=== PATIENT | female | born 1960 | race Caucasian/White ===

== ENCOUNTER 2018-04-07 17:16 | Inpatient (IN) | payer MEDICARE, OTHER ==
[~2018-04-07] VITALS: Ht 157.5 cm; Wt 86.2 kg
[~2018-04-07 17:16] MED LIST: BUPR300T52 PO; CEPH-570 PO; GABA-536
--- NOTE | 2018-04-07 17:16 | NUR ---
PT BIBRA 8[address] FROM [address] STREETS C/O LOWER ABDOMINAL PAIN. PT IS AAOX3, NOT IN RESPIRATORY DISTRESS, V/S STABLE, KEPT RESTED AND COMFORTABLE.
--- NOTE | 2018-04-07 17:41 | NUR ---
SEEN AND EXAMINED BY LIZETTE BEVERLY
[2018-04-07 18:05] LABS: BASOPHILS # (AUTO) 0.1 /CMM (0.0-0.2); BASOPHILS % (AUTO) 0.8 % (0.0-2.0); EOSINOPHILS % (AUTO) 2.1 % (0.0-6.0); HEMATOCRIT 35 % (33-45); HEMOGLOBIN 11.7 g/dL (11.5-14.8); LYMPHOCYTES # (AUTO) 2.1 /CMM (0.8-4.8); LYMPHOCYTES % (AUTO) 28.4 % (20.0-44.0); MEAN CORPUSCULAR HGB CONC 33 g/dl (31.0-36.0); MEAN CORPUSCULAR VOLUME 89 fL (82-100); MONOCYTES # (AUTO) 0.6 /CMM (0.1-1.30); MONOCYTES % (AUTO) 8.3 % (2.0-12.0); NEUTROPHILS # (AUTO) 4.5 /CMM (1.8-8.9); NEUTROPHILS % (AUTO) 60.4 % (43.0-81.0); PLATELET COUNT (AUTO) 254 /CMM (150-450); RED BLOOD CELL COUNT(AUTO) 3.92 MIL/uL (4.0-5.2); WHITE BLOOD COUNT (AUTO) 7.4 K/uL (4.3-11.0)
[2018-04-07 18:11] LABS: CALCIUM, SERUM 8.2 mg/dL (8.5-10.1); CARBON DIOXIDE 31 mmol/L (21-32); CHLORIDE 104 mmol/L (98-107); GLUCOSE 101 mg/dL (74-106); POTASSIUM 3.8 mmol/L (3.5-5.1); SODIUM SERUM 138 mmol/L (136-145); UREA NITROGEN, BLOOD 26 mg/dL (7-18)
[2018-04-07 18:17] LABS: ALANINE AMINOTRANSFERASE 22 U/L (12-78); ALBUMIN 2.6 g/dL (3.4-5.0); ALCOHOL, BLOOD < 3 mg/dL (0-0); ALKALINE PHOSPHATASE 83 U/L (46-116); ASPARTATE AMINOTRANSFERASE 18 U/L (15-37); BILIRUBIN,DIRECT 0.1 mg/dL (0.0-0.2); BILIRUBIN,TOTAL 0.3 mg/dL (0.2-1.0); TOTAL PROTEIN, SERUM 6.3 g/dL (6.4-8.2)
[2018-04-07 18:18] LABS: ACETAMINOPHEN < 2 ug/ml (10-30); SALICYLATE < 2.8 mg/dL (2.8-20.0)
[2018-04-07 18:35] LABS: APPEARANCE,URINE Clear (CLEAR); BILIRUBIN,URINE Negative (NEGATIVE); BLOOD, URINE Moderate Ery/uL (NEGATIVE); COLOR,URINE Dark (YELLOW); KETONES,URINE Trace (NEGATIVE); LEUKOCYTE ESTERASE ,URINE Trace (NEGATIVE); NITRITE, URINE Positive (NEGATIVE); PROTEIN,URINE Trace mg/dl (NEGATIVE); UGLUCOSE Negative (NEGATIVE)
--- NOTE | 2018-04-07 18:35 | NUR ---
URINE SPECIMEN COLLECTED AND SENT TO LAB.
[2018-04-07 18:44] LABS: BACTERIA,URINE Many /HPF (None Seen); SQUAMOUS EPITHELIAL CELL,UR Few /HPF (None Seen)
--- NOTE | 2018-04-07 19:22 | NUR ---
REPORT GIVEN TO IRIS RAY FOR LUNA.
[2018-04-07] MEDS ORDERED: CEFTRIAXONE 1GM BAG (ER ONLY) 1 GM/50 ML PIGGYBACK IV ONE (20:00)
[2018-04-07] MEDS ORDERED: IV NS 0.9% 1,000 ML BAG IV ONE (20:00)
[2018-04-07] MEDS ORDERED: CEFTRIAXONE 1GM BAG (ER ONLY) 50 ML IV ONE (20:23)
--- NOTE | 2018-04-07 20:32 | NUR ---
PT IS AAOX3, NOT IN RESPIRATORY DISTRESS, V/S STABLE, KEPT RESTED AND COMFORTABLE.
--- NOTE | 2018-04-07 20:32 | NUR ---
IV STARTED IN LEFT HAND 20G IV, PT GIVEN 1L NS AND ROCEPHIN VIA LEFT HAND 20G IV
--- NOTE | 2018-04-07 21:51 | NUR ---
behzad called report given to German, pt will go to room 216A
[2018-04-07] MEDS ORDERED: MAGNESIUM HYDROXIDE 30 ML UDC PO PRN (23:00)
[2018-04-07] MEDS ORDERED: MAG HYDROX/AL HYDROX/SIMETH 30 ML UDC PO PRN (23:00)
--- NOTE | 2018-04-07 23:00 | NUR ---
GPS/HUMAN RESOURCES BENEFITS ASSISTANT ADMISSION NOTES: RECEIVED 57YR OLD FEMALE ON A 5150 HOLD FOR DTS. PT. IS A/O X3. UNCOOPERATIVE. PT. ORIENTED TO UNIT POLICY, PROCEDURES, AND PROTOCOLS. PT. BELONGINGS AND CONTRABAND LOGGED AND TAKEN, AND PLACED IN LOCKED CABINET. CALL ROSALES WITHIN REACH, BED IN LOCKED POSITION. SAFETY ENVIRONMENT OBSERVED AT ALL TIMES. MEDICAL AND PSYCH DR. NOTIFIED OF PT. ADMISSION. PT. FAMILY ALSO NOTIFIED OF PT. ADMISSION TO UNIT. WILL CONTINUE TO MONITOR Q 15 MIN FOR SAFETY AND BEHAVIOR.
[2018-04-08] MEDS ORDERED: CEPHALEXIN MONOHYDRATE 500 MG CAPSULE PO SCH (03:30)
[2018-04-08 07:50] LABS: BASOPHILS % (AUTO) 0.7 % (0.0-2.0); EOSINOPHILS % (AUTO) 2.1 % (0.0-6.0); HEMATOCRIT 36 % (33-45); HEMOGLOBIN 11.9 g/dL (11.5-14.8); LYMPHOCYTES # (AUTO) 1.6 /CMM (0.8-4.8); LYMPHOCYTES % (AUTO) 31.3 % (20.0-44.0); MEAN CORPUSCULAR HGB CONC 33 g/dl (31.0-36.0); MEAN CORPUSCULAR VOLUME 89 fL (82-100); MONOCYTES # (AUTO) 0.5 /CMM (0.1-1.30); MONOCYTES % (AUTO) 9.6 % (2.0-12.0); NEUTROPHILS # (AUTO) 2.9 /CMM (1.8-8.9); NEUTROPHILS % (AUTO) 56.3 % (43.0-81.0); PLATELET COUNT (AUTO) 258 /CMM (150-450); RED BLOOD CELL COUNT(AUTO) 4.03 MIL/uL (4.0-5.2); WHITE BLOOD COUNT (AUTO) 5.2 K/uL (4.3-11.0)
[2018-04-08 08:00] VITALS: BP 142/77
[2018-04-08 08:02] LABS: ALBUMIN 2.7 g/dL (3.4-5.0); BILIRUBIN,TOTAL 0.4 mg/dL (0.2-1.0); CALCIUM, SERUM 8.2 mg/dL (8.5-10.1); CREATININE 0.5 mg/dL (0.6-1.3); POTASSIUM 3.9 mmol/L (3.5-5.1)
[2018-04-08 08:03] LABS: CHOLESTEROL 126 mg/dL (<200); HDL CHOLESTEROL 51 mg/dL (40-60); LDL 73 mg/dL (0-99); TRIGLYCERIDES 66 mg/dL (30-150)
--- NOTE | 2018-04-08 10:44 | NUR ---
SW attempted to contact pts relative Paz Moss [phone]. SW was unable to leave voicemail as mailbox is not set up.
--- NOTE | 2018-04-08 10:44 | NUR ---
INITIAL DISCHARGE PLAN: Patient wishes to be discharged to a SNF. SW will help form a safe and proper discharge in collaboration with MD.
[2018-04-08] MEDS: CEPHALEXIN MONOHYDRATE 500 MG CAPSULE PO SCH ×2 (12:18→21:25)
[2018-04-08] MEDS: LORAZEPAM 0.5 MG TABLET PO PRN ×2 (12:18→21:25)
[2018-04-08 16:00] VITALS: BP 109/50
[2018-04-08 20:00] VITALS: BP 131/79
[2018-04-08] MEDS: GABAPENTIN 400 MG CAPSULE PO SCH (21:25)
[2018-04-09 08:00] VITALS: BP 134/89
[2018-04-09] MEDS: GABAPENTIN 400 MG CAPSULE PO SCH ×4 (08:56→20:50)
[2018-04-09] MEDS: CEPHALEXIN MONOHYDRATE 500 MG CAPSULE PO SCH ×2 (08:56→20:50)
[2018-04-09] MEDS: BUPROPION XL 150 MG TAB.ER.24 PO SCH (08:59)
[2018-04-09] MEDS: ARIPIPRAZOLE 5 MG TABLET PO SCH (08:59)
[2018-04-09 16:00] VITALS: BP 147/69
[2018-04-10 08:00] VITALS: BP 125/76
[2018-04-10] MEDS: ARIPIPRAZOLE 5 MG TABLET PO SCH (08:28)
[2018-04-10] MEDS: BUPROPION XL 150 MG TAB.ER.24 PO SCH (08:28)
[2018-04-10] MEDS: GABAPENTIN 400 MG CAPSULE PO SCH ×4 (08:28→21:56)
[2018-04-10] MEDS: CEPHALEXIN MONOHYDRATE 500 MG CAPSULE PO SCH ×2 (08:28→23:00)
[2018-04-10 16:00] VITALS: BP 124/69
[2018-04-10 19:00] VITALS: BP 143/94
[2018-04-10 20:18] VITALS: BP 143/94
[2018-04-10] MEDS ORDERED: CEPHALEXIN MONOHYDRATE 500 MG CAPSULE PO ONE (22:12)
[2018-04-11 08:00] VITALS: BP 126/76
[2018-04-11] MEDS: BUPROPION XL 150 MG TAB.ER.24 PO SCH (09:56)
[2018-04-11] MEDS: CEPHALEXIN MONOHYDRATE 500 MG CAPSULE PO SCH ×2 (09:56→22:09)
[2018-04-11] MEDS: GABAPENTIN 400 MG CAPSULE PO SCH ×4 (09:56→22:10)
[2018-04-11] MEDS: ARIPIPRAZOLE 5 MG TABLET PO SCH (09:56)
[2018-04-11] MEDS: LORAZEPAM 0.5 MG TABLET PO PRN ×2 (11:16→22:09)
--- NOTE | 2018-04-11 11:16 | NUR ---
RN NOTE: PATIENT IS ANXIOUS. PRN ATIVAN GIVEN.
[2018-04-11 16:00] VITALS: BP 110/68
[2018-04-11 20:00] VITALS: BP 117/66
[2018-04-12 08:00] VITALS: BP 130/98
--- NOTE | 2018-04-12 08:00 | NUR ---
RN NOTES RECEIVED PT ON BED, STABLE, CLAM , CONTINUE TO MONITOR.
[2018-04-12] MEDS: GABAPENTIN 400 MG CAPSULE PO SCH ×4 (08:52→20:42)
[2018-04-12] MEDS: ARIPIPRAZOLE 5 MG TABLET PO SCH (08:52)
[2018-04-12] MEDS: CEPHALEXIN MONOHYDRATE 500 MG CAPSULE PO SCH ×2 (08:52→20:42)
[2018-04-12] MEDS: BUPROPION XL 150 MG TAB.ER.24 PO SCH (08:52)
[2018-04-12 16:00] VITALS: BP 118/71
--- NOTE | 2018-04-12 18:23 | NUR ---
RN NOTES NO SIGNIFICANT CHANGES NOTED ON THIS SHIFT, PT HEMALATHA ANY DISTRESS , WILL ENDORSE TO TERRA COTTA SETTER NURSE FOR CONTINUITY OF CARE.
[2018-04-12 20:49] VITALS: BP 106/55
[2018-04-13 07:17] LABS: CREATININE 0.8 mg/dL (0.6-1.3); POTASSIUM 4.7 mmol/L (3.5-5.1)
[2018-04-13 08:00] VITALS: BP 146/90
[2018-04-13] MEDS: GABAPENTIN 400 MG CAPSULE PO SCH ×4 (08:56→21:00)
[2018-04-13] MEDS: BUPROPION XL 150 MG TAB.ER.24 PO SCH (08:56)
[2018-04-13] MEDS: ARIPIPRAZOLE 5 MG TABLET PO SCH (08:56)
[2018-04-13] MEDS: CEPHALEXIN MONOHYDRATE 500 MG CAPSULE PO SCH ×2 (08:56→21:00)
[2018-04-13] MEDS: LORAZEPAM 0.5 MG TABLET PO PRN (09:46)
[2018-04-13 16:00] VITALS: BP 127/88
[2018-04-13 19:56] VITALS: BP 102/74
[2018-04-13] MEDS: TEMAZEPAM 7.5 MG CAPSULE PO PRN (22:03)
[2018-04-14 08:00] VITALS: BP 116/67
[2018-04-14] MEDS: GABAPENTIN 400 MG CAPSULE PO SCH ×4 (08:47→21:08)
[2018-04-14] MEDS: BUPROPION XL 150 MG TAB.ER.24 PO SCH (08:48)
[2018-04-14] MEDS: CEPHALEXIN MONOHYDRATE 500 MG CAPSULE PO SCH ×2 (08:48→21:08)
--- NOTE | 2018-04-14 09:09 | NUR ---
OMKAR faxed referral to America programming coordinator at [facility] Address: [address] [place] [address] for review.
[2018-04-14] MEDS: LORAZEPAM 0.5 MG TABLET PO PRN ×2 (12:08→18:12)
[2018-04-14] MEDS: ACETAMINOPHEN 325 MG TABLET PO PRN ×2 (12:08→18:12)
--- NOTE | 2018-04-14 13:28 | NUR ---
SW received a phone call from David, helper coordinator at [facility] Address: [address] [place] [address] stating pts Medicare has been exhausted due to her current hospitalization and therefore pt is not covered for their detox inpatient program. David also stated that pt may be able to be admitted under their residential program, however, there are currently no bed available.
[2018-04-14 16:00] VITALS: BP 132/89
[2018-04-14 20:00] VITALS: BP 109/56
[2018-04-14] MEDS: ARIPIPRAZOLE 5 MG TABLET PO SCH (21:07)
[2018-04-15 08:00] VITALS: BP 123/78
--- NOTE | 2018-04-15 08:33 | NUR ---
OMKAR faxed SNF referral to Pattern Duplicator at [facility] Address: [address], [place] [address] and [facility] (SNF) [address] [address] for SNF placement. .
[2018-04-15] MEDS: BUPROPION XL 150 MG TAB.ER.24 PO SCH (08:50)
[2018-04-15] MEDS: CEPHALEXIN MONOHYDRATE 500 MG CAPSULE PO SCH (08:50)
[2018-04-15] MEDS: GABAPENTIN 400 MG CAPSULE PO SCH ×4 (08:50→21:28)
--- NOTE | 2018-04-15 09:51 | NUR ---
SW received a phone call from Projection Camera Operator at [facility] Address: [address], [place] [address] and [facility] ([facility]) [address] [address] stating pt has been accepted to both facilities.
[2018-04-15] MEDS: LORAZEPAM 0.5 MG TABLET PO PRN ×2 (12:22→23:06)
[2018-04-15 16:00] VITALS: BP 123/71
[2018-04-15] MEDS: ACETAMINOPHEN 325 MG TABLET PO PRN (16:53)
[2018-04-15 20:00] VITALS: BP 107/67
[2018-04-15] MEDS: ARIPIPRAZOLE 5 MG TABLET PO SCH (21:28)
[2018-04-16 08:00] VITALS: BP 129/93
[2018-04-16] MEDS: BUPROPION XL 150 MG TAB.ER.24 PO SCH (08:44)
[2018-04-16] MEDS: GABAPENTIN 400 MG CAPSULE PO SCH ×4 (08:44→20:49)
--- NOTE | 2018-04-16 15:11 | NUR ---
RN NOTE: PATIENT IS ANXIOUS. PRN ATIVAN 1 MG PO PRN GIVEN. WILL CONTINUE MONITORING. Addendum: 04/16/18 at 1512 by JUAN MIGUEL BUTLER RN WRONG PT NOTE
[2018-04-16] MEDS: LORAZEPAM 0.5 MG TABLET PO PRN (15:53)
[2018-04-16 16:00] VITALS: BP 117/69
[2018-04-16] MEDS: ACETAMINOPHEN 325 MG TABLET PO PRN (18:30)
[2018-04-16 20:00] VITALS: BP 130/72
[2018-04-16] MEDS: ARIPIPRAZOLE 5 MG TABLET PO SCH (21:02)
[2018-04-16] MEDS: TEMAZEPAM 7.5 MG CAPSULE PO PRN (21:02)
--- NOTE | 2018-04-17 00:30 | NUR ---
GPS RN NOTES PT SLEEPING. EASILY AROUSABLE. NOT IN ANY DISTRESS. NO SOB NOTED. NO S/SX OF ANY PAIN OR DISCOMFORT AT THIS TIME. WILL CONTINUE TO MONITOR FOR BEHAVIOR AND SAFETY.
[2018-04-17] MEDS: ACETAMINOPHEN 325 MG TABLET PO PRN ×2 (06:03→12:25)
--- NOTE | 2018-04-17 07:30 | NUR ---
PT RECEIVED RESTING COMFORTABLY IN BED. NO S/S OR C/O PAIN OR DISTRESS NOTED. GPS SAFETY PROTOCOL MET. WILL CONTINUE PLAN OF CARE.
[2018-04-17 08:00] VITALS: BP 148/88
[2018-04-17] MEDS: GABAPENTIN 400 MG CAPSULE PO SCH ×4 (09:15→21:52)
[2018-04-17] MEDS: BUPROPION XL 150 MG TAB.ER.24 PO SCH (09:15)
[2018-04-17] MEDS: LORAZEPAM 0.5 MG TABLET PO PRN ×2 (14:48→21:52)
[2018-04-17 16:00] VITALS: BP 160/85
[2018-04-17 20:00] VITALS: BP 121/83
[2018-04-17] MEDS: ARIPIPRAZOLE 5 MG TABLET PO SCH (21:52)
[2018-04-18] MEDS: ACETAMINOPHEN 325 MG TABLET PO PRN ×2 (05:21→15:25)
--- NOTE | 2018-04-18 05:32 | NUR ---
GPS RN NOTE: PATIENT WAS UPSET, LOUD, DEMANDING, YELLING, AGITATED AND C/O ROOMMATE SMELL. REDIRECTED THE PATIENT, LIMIT SETTING DONE. EXPLAINED TO THE PATIENT THAT THERE IS NO AVAILABLE BED AT THIS TIME. OFFERED THE OBSERVATION ROOM TEMPORARY AND PATIENT CALM DOWN AND APPRECIATED THE INTERVENTION. WILL CONTINUE TO FOLLOW UP IN AM
[2018-04-18 08:00] VITALS: BP 137/71
[2018-04-18] MEDS: GABAPENTIN 400 MG CAPSULE PO SCH ×4 (08:11→21:13)
[2018-04-18] MEDS: BUPROPION XL 150 MG TAB.ER.24 PO SCH (08:12)
[2018-04-18] MEDS: LORAZEPAM 0.5 MG TABLET PO PRN (13:49)
--- NOTE | 2018-04-18 15:38 | NUR ---
SW provided substance abuse intervention to pt.
[2018-04-18 16:00] VITALS: BP 134/69
[2018-04-18 20:15] VITALS: BP 131/78
[2018-04-18] MEDS: ARIPIPRAZOLE 5 MG TABLET PO SCH (21:13)
[2018-04-18] MEDS: TEMAZEPAM 7.5 MG CAPSULE PO PRN (23:08)
[2018-04-19 08:00] VITALS: BP 135/74
[2018-04-19] MEDS: BUPROPION XL 150 MG TAB.ER.24 PO SCH (09:09)
[2018-04-19] MEDS: GABAPENTIN 400 MG CAPSULE PO SCH ×2 (09:09→12:50)
--- NOTE | 2018-04-19 15:05 | NUR ---
DISCHARGE NOTE: Pt was discharged at 2:00pm via [facility] ambulance trip #[id number] to [facility] Address: [address] [place] [address] . No family to notify. Pts mood was anxious and agitated and stated she was going to AMA as soon as she arrived to the facility. Pt denied visual/auditory hallucinations and denied suicidal/homicidal ideations. Pt will address her substance use and continue psychiatric treatment with Psychiatrist: Dr. Joseluis Owusu [address], [place] [address] [phone] and be under the care of Carrier Loader: Dr. Cristofer Bravo [address], [place] [address] [phone]. For smoking cessation, patient was referred to the [place] [place] and [place] [employer] [id number]. Pt will also participate in a telephone meeting with [employer] [phone] on Thursday April 19, 2018 at 8:00am. The multidisciplinary exitcare form was done, printed, signed, and given to the patient.
--- NOTE | 2018-04-19 16:11 | NUR ---
RN NOTE: DISCHARGE ORDER: PATIENT LEFT THE UNIT WITH AMBULANCE AT 1410 WITH THE AMBULANCE SERVICE TO [facility]. PATIENT DENIES SI/HI DURING DISCHARGE. DENIES HALLUCINATIONS. PSYCHIATRIST ORDERED DC ORDER, DC HOLD, AND CONT MEDS. LOOM FIXER AWARE AND CONT MEDS. BELONGINGS WITH PATIENT. EXIT CARE GIVEN AND EXPLAINED TO PATIENT. SKIN ASSESSMENT CLEAR WITH NO PICTURES. REPORT GIVEN TO VELIA AT THE HOME.
--- NOTE | 2018-05-04 16:16 | NUR ---
15 DAY SUBSTANCE ABUSE FOLLOW-UP: Excluded due to D/C to SNF.
== END 2018-04-19 14:05 | DRG 885 ==
LOC: ER 17:17 → GPS 21:32
PROVIDERS: ADMIT Psychiatry & Neurology Psychiatry; ATTEND Psychiatry & Neurology Psychiatry
DX: F31.30 Bipolar disorder, current episode depressed, mild or moderate severity, unspecified (principal); N17.0 Acute kidney failure with tubular necrosis; N39.0 Urinary tract infection, site not specified; E44.0 Moderate protein-calorie malnutrition; K43.9 Ventral hernia without obstruction or gangrene; M19.90 Unspecified osteoarthritis, unspecified site; F17.210 Nicotine dependence, cigarettes, uncomplicated; G89.29 Other chronic pain; Z85.820 Personal history of malignant melanoma of skin; Z96.641 Presence of right artificial hip joint; Z96.653 Presence of artificial knee joint, bilateral; Z85.41 Personal history of malignant neoplasm of cervix uteri; Z98.84 Bariatric surgery status; G40.909 Epilepsy, unspecified, not intractable, without status epilepticus; Z91.19 Patient's noncompliance with other medical treatment and regimen; F29 Unspecified psychosis not due to a substance or known physiological condition; F15.10 Other stimulant abuse, uncomplicated; F12.10 Cannabis abuse, uncomplicated; B96.1 Klebsiella pneumoniae [K. pneumoniae] as the cause of diseases classified elsewhere; Z68.34 Body mass index [BMI] 34.0-34.9, adult; E88.09 Other disorders of plasma-protein metabolism, not elsewhere classified; Z59.0 Homelessness
CPT/HCPCS: 36415; 80048-TC; 80053-TC; 80061-TC; 80076-TC; 80305; 81000-TC; 85025-TC; 87081-TC; 87086-TC; 87186-TC; G0480; J0696; J7030

== ENCOUNTER 2018-11-28 10:01 | Inpatient (IN) | payer MEDICARE, OTHER ==
[~2018-11-28] VITALS: Ht 162.6 cm; Wt 86.2 kg
[~2018-11-28 10:01] MED LIST changes: -BUPR300T52 PO
--- NOTE | 2018-11-28 10:08 | NUR ---
[id number] AND JU,58 YEAR OLD FEMALE ALCOHOL INTOXICATION, PER JU PT STATES "I WANT TO KILL MYSELF", BS 132. ALERT AND ORIENTED X1 BREATHING EVEN. IN DISTRESS SECURITY WAS CALLED, VERBAL ORDER GIVEN FOR A 4 POINT RESTRAINTS ON PATIENT. PATIENT APPEARS HOMELESS. WAITING TO BE SEEN BY MD. WILL CONTINUE TO MONITOR.
[2018-11-28] MEDS ORDERED: HALOPERIDOL LACTATE INJ 5 MG/ML VIAL ONE (10:09)
[2018-11-28] MEDS ORDERED: LORAZEPAM INJ 2 MG/ML VIAL ONE (10:11)
--- NOTE | 2018-11-28 10:18 | NUR ---
agitated- does not follow command- ER MD at bedside with orders for IM- Ativan and haldol - given
[2018-11-28 10:28] LABS: BASOPHILS % (AUTO) 0.5 % (0.0-2.0); EOSINOPHILS % (AUTO) 2.9 % (0.0-6.0); HEMATOCRIT 37 % (33-45); HEMOGLOBIN 12.3 g/dL (11.5-14.8); LYMPHOCYTES # (AUTO) 1.9 /CMM (0.8-4.8); LYMPHOCYTES % (AUTO) 30.5 % (20.0-44.0); MEAN CORPUSCULAR HGB CONC 33 g/dl (31.0-36.0); MEAN CORPUSCULAR VOLUME 92 fL (82-100); MONOCYTES # (AUTO) 0.5 /CMM (0.1-1.30); MONOCYTES % (AUTO) 7.9 % (2.0-12.0); NEUTROPHILS # (AUTO) 3.6 /CMM (1.8-8.9); NEUTROPHILS % (AUTO) 58.2 % (43.0-81.0); PLATELET COUNT (AUTO) 339 /CMM (150-450); RED BLOOD CELL COUNT(AUTO) 4.06 MIL/uL (4.0-5.2); WHITE BLOOD COUNT (AUTO) 6.1 K/uL (4.3-11.0)
[2018-11-28 10:30] LABS: APPEARANCE,URINE Clear (CLEAR); BILIRUBIN,URINE Negative (NEGATIVE); BLOOD, URINE Small Ery/uL (NEGATIVE); COLOR,URINE Light yellow (YELLOW); KETONES,URINE Negative (NEGATIVE); LEUKOCYTE ESTERASE ,URINE Small (NEGATIVE); NITRITE, URINE Negative (NEGATIVE); PROTEIN,URINE Negative (NEGATIVE); UGLUCOSE Negative (NEGATIVE); UROBILINOGEN,URINE 0.2 EU/dL (0.2)
[2018-11-28] MEDS ORDERED: LORAZEPAM INJ 2 MG/ML VIAL IM ONE (10:30)
[2018-11-28] MEDS ORDERED: HALOPERIDOL LACTATE INJ 5 MG/ML VIAL IM ONE (10:30)
[2018-11-28 10:35] LABS: BACTERIA,URINE Few /HPF (None Seen); SQUAMOUS EPITHELIAL CELL,UR Few /HPF (None Seen); WBC,URINE 0-2 /HPF (0-3)
[2018-11-28 10:36] LABS: HYALINE CASTS, URINE Few /LPF (None Seen)
[2018-11-28 10:38] LABS: CALCIUM, SERUM 7.9 mg/dL (8.5-10.1); CREATININE 0.6 mg/dL (0.6-1.3); POTASSIUM 3.9 mmol/L (3.5-5.1)
[2018-11-28 10:44] LABS: ALBUMIN 3.2 g/dL (3.4-5.0); BILIRUBIN,DIRECT 0.1 mg/dL (0.0-0.2); BILIRUBIN,TOTAL 0.3 mg/dL (0.2-1.0); SALICYLATE 1.7 mg/dL (2.8-20.0); TOTAL PROTEIN, SERUM 6.8 g/dL (6.4-8.2)
--- NOTE | 2018-11-28 12:10 | NUR ---
PATIENT ASLEEP RESTRAINTS REMOVED +PULSES GOOD CIRCULATION
--- NOTE | 2018-11-28 14:10 | NUR ---
PATIENT ASLEEP RESTRAINTS REMOVED +PULSES GOOD CIRCULATION
--- NOTE | 2018-11-28 14:11 | NUR ---
2000ML OF URINE OUTPUT FROM F/C
--- NOTE | 2018-11-28 15:13 | NUR ---
CALLED FOR FOOD TRAY
--- NOTE | 2018-11-28 15:33 | NUR ---
CALLED DENISE TO COME SEE PT.
--- NOTE | 2018-11-28 15:57 | NUR ---
pt still asleep, not ready to be seen by sw
--- NOTE | 2018-11-28 20:39 | NUR ---
GPS 220 A
--- NOTE | 2018-11-28 20:52 | NUR ---
REPORT GIVEN TO TRISHA SIMMONS FOR LUNA PT WILL BE TRANSPORTED TO GPS
[2018-11-28 21:30] VITALS: BP 155/75
[2018-11-28] MEDS ORDERED: BLOOD SUGAR DIAGNOSTIC 1 EACH STRIP IN ONE (21:30)
[2018-11-28] MEDS ORDERED: MAG HYDROX/AL HYDROX/SIMETH 30 ML UDC PO PRN (21:30)
[2018-11-28] MEDS ORDERED: MAGNESIUM HYDROXIDE 30 ML UDC PO PRN (21:30)
--- NOTE | 2018-11-28 21:30 | NUR ---
RN INITIAL NOTE PT ARRIVED TO UNIT VIA WHEELCHAIR FROM ER. PT IS A/OX3. ON ROOM AIR, BREATHING EVEN AND UNLABORED. DENIES SOB AND PAIN AT THIS TIME. IN NO ACUTE RESPIRATORY DISTRESS. PT DISHEVELED AND UNKEMPT. PT IS HOMELESS. ESCORTED TO SHOWER ROOM AND THEN TO BED. ORIENTED PT TO UNIT AND ROOM. EXPRESSES THAT SHE IS DEPRESSED AND SUICIDAL. ORIGINAL PLAN OUTSIDE HOSPITAL WAS TO "RUN INTO ONCOMING TRAFFIC". ALTHOUGH NOW THAT SHE IS IN UNIT, SHE DENIES HAVING A PLAN. DENIES HI AND HALLUCINATIONS AT THIS TIME. SHE IS COOPERATIVE AND OBEYS COMMANDS, ALTHOUGH GETS EASILY AGITATED AND UPSET WHEN ASKING ABOUT HER FAMILY LIFE. BELONGINGS LIST COMPLETED AND STORED PER PROTOCOL. WILL MONITOR CLOSELY AND PROVIDE FREQUENT SAFETY CHECKS.
[2018-11-29 07:35] LABS: CREATININE 0.6 mg/dL (0.6-1.3)
[2018-11-29 07:43] LABS: CHOLESTEROL 157 mg/dL (<200); HDL CHOLESTEROL 83 mg/dL (40-60); LDL 67 mg/dL (0-99); TRIGLYCERIDES 54 mg/dL (30-150)
[2018-11-29 08:00] VITALS: BP 151/74
[2018-11-29] MEDS: LORAZEPAM 0.5 MG TABLET PO PRN ×2 (09:49→17:21)
[2018-11-29] MEDS: GABAPENTIN 300 MG CAPSULE PO SCH ×2 (15:03→17:21)
--- NOTE | 2018-11-29 15:23 | NUR ---
INITIAL DISCHARGE PLAN: Patient states that she wants to be discharged to [place] as that is where she is from. SW will refer pt to [facility]. SW will help form a safe and proper discharge in collaboration to .
--- NOTE | 2018-11-29 15:24 | NUR ---
Group Note: SW encouraged the pt to participate in group therapy on 11/29/18 at 2pm on the topic of discharge planning. Pt refused to attend by refusing to speak to the SW. SW proceeded to provide the pt with an individual intervention and stated that her SW will assist her with her placement needs. Pt appeared to be disheveled, malodorous and inappropriately dressed. Pt appeared to be in a labile mood and presented with a flat and guarded affect. Pt did not appear to be appropriate for group therapy.
[2018-11-29 16:00] VITALS: BP 143/74
[2018-11-29] MEDS: ARIPIPRAZOLE 5 MG TABLET PO SCH (17:20)
[2018-11-29 20:13] VITALS: BP 143/90
[2018-11-30 08:00] VITALS: BP 150/76
[2018-11-30] MEDS: CEPHALEXIN MONOHYDRATE 500 MG CAPSULE PO SCH ×2 (08:21→16:42)
[2018-11-30] MEDS: GABAPENTIN 300 MG CAPSULE PO SCH ×3 (08:21→16:42)
[2018-11-30] MEDS: ARIPIPRAZOLE 5 MG TABLET PO SCH ×3 (08:21→16:42)
[2018-11-30] MEDS: LORAZEPAM 0.5 MG TABLET PO PRN ×2 (09:06→15:59)
--- NOTE | 2018-11-30 10:54 | NUR ---
WOUND CARE CONSULT: PT AGITATED AND REFUSED SKIN ASSESSMENT. PT IS AMBULATORY AND CONTINENT. WILL SEE PRN. CURRENT SARAH SCORE IS 21.
[2018-11-30] MEDS ORDERED: Z GUARD REMEDY 2 OZ OINT TP PRN (11:00)
[2018-11-30 16:00] VITALS: BP 130/96
[2018-11-30 20:33] VITALS: BP 118/76
[2018-12-01 08:00] VITALS: BP 123/74
[2018-12-01] MEDS: GABAPENTIN 300 MG CAPSULE PO SCH ×3 (08:15→16:18)
[2018-12-01] MEDS: CEPHALEXIN MONOHYDRATE 500 MG CAPSULE PO SCH ×2 (08:15→16:18)
[2018-12-01] MEDS: ARIPIPRAZOLE 5 MG TABLET PO SCH ×3 (08:15→16:18)
[2018-12-01] MEDS: LORAZEPAM 0.5 MG TABLET PO PRN ×2 (09:28→16:56)
--- NOTE | 2018-12-01 15:35 | NUR ---
Group Note: SW encouraged pt to attend group therapy on 12/01/18 at 2:30pm discussing anger management for when they are in the hospital and for once they are discharged but pt unable to attend.
[2018-12-01 16:00] VITALS: BP 105/69
[2018-12-01 20:00] VITALS: BP 100/71
[2018-12-02] MEDS: TEMAZEPAM 7.5 MG CAPSULE PO PRN (01:32)
--- NOTE | 2018-12-02 01:34 | NUR ---
GPS RN NOTES AWAKE,MEDICATED WITH RESTORIL 7.5MG,1 CAPSULE PO GIVEN
[2018-12-02 03:50] VITALS: BP 100/71
--- NOTE | 2018-12-02 07:22 | NUR ---
OPENING PT IN BED CALM, IS A/OX3. ON ROOM AIR, BREATHING EVEN AND UNLABORED. DENIES SOB AND PAIN AT THIS TIME. IN NO ACUTE RESPIRATORY DISTRESS. PT IN GREEN GOWN PT IS HOMELESS. ORIENTED PT TO UNIT AND ROOM. ORIGINAL PLAN OUTSIDE HOSPITAL WAS TO "RUN INTO ONCOMING TRAFFIC". WILL MONITOR AND PROVIDE FREQUENT SAFETY CHECKS.
[2018-12-02 08:00] VITALS: BP 124/79
[2018-12-02] MEDS: CEPHALEXIN MONOHYDRATE 500 MG CAPSULE PO SCH ×2 (08:48→17:09)
[2018-12-02] MEDS: ARIPIPRAZOLE 5 MG TABLET PO SCH ×3 (08:48→21:22)
[2018-12-02] MEDS: LORAZEPAM 0.5 MG TABLET PO PRN ×2 (08:48→21:23)
[2018-12-02] MEDS: GABAPENTIN 300 MG CAPSULE PO SCH ×3 (08:48→17:09)
[2018-12-02] MEDS: ACETAMINOPHEN 325 MG TABLET PO PRN (09:50)
--- NOTE | 2018-12-02 12:44 | NUR ---
SW spoke to the pt who stated that she wanted to be discharged to the streets because she did not want to be placed in a [place] [facility] [place] anymore. She stated that she knows how these nursing homes operate and she would rather be on her own on the streets. The SW redirected her to the pts psychiatrist and stated that the psychiatrist can let her know when she will be released.
[2018-12-02 16:00] VITALS: BP 102/60
--- NOTE | 2018-12-02 17:53 | NUR ---
CLOSING PT COOPERATIVE ALL DAY MOSTLY IN ROOM BED IN LOW POSITION KEPT SAFE ALL SHIFT PT COMPLIANT WITH MEDICATION PLAN. WILL GIVEN REPORT TO PM SHIFT FOR CONTINUITY OF CARE
[2018-12-02 18:05] VITALS: BP 124/74
--- NOTE | 2018-12-02 20:02 | NUR ---
OPINING: PT IS IN BED AWAKE, NO C/O OR S/S PAIN AND DISCOMFORT, PT HAS NO NEED AT THIS TIME, CONTINUE TO MONITOR PT AND MAINTAIN SAFETY THROUGHOUT THE SHIFT.
[2018-12-02 21:18] VITALS: BP 117/65
[2018-12-03 08:00] VITALS: BP 101/62
[2018-12-03] MEDS: CEPHALEXIN MONOHYDRATE 500 MG CAPSULE PO SCH ×2 (08:57→16:17)
[2018-12-03] MEDS: LORAZEPAM 0.5 MG TABLET PO PRN ×3 (08:57→23:22)
[2018-12-03] MEDS: GABAPENTIN 300 MG CAPSULE PO SCH ×3 (08:57→16:17)
[2018-12-03] MEDS: ARIPIPRAZOLE 5 MG TABLET PO SCH ×3 (08:57→21:55)
[2018-12-03 16:00] VITALS: BP 118/70
[2018-12-03] MEDS: ACETAMINOPHEN 325 MG TABLET PO PRN (16:17)
[2018-12-03 20:51] VITALS: BP 115/68
--- NOTE | 2018-12-04 07:54 | NUR ---
GPS RN NOTE O PT IS IN BED AWAKE, NO C/O OR S/S PAIN AND DISCOMFORT ,RESPIRATION EVEN UNLABORED , CONTINUE TO MONITOR PT AND MAINTAIN SAFETY AND BEHAVIOR MONITOR , HAVING BREAKFAST , ABLE TO EAT SELF
[2018-12-04 08:00] VITALS: BP 116/68
[2018-12-04] MEDS: ARIPIPRAZOLE 5 MG TABLET PO SCH ×3 (08:40→21:30)
[2018-12-04] MEDS: LORAZEPAM 0.5 MG TABLET PO PRN ×2 (08:40→15:34)
[2018-12-04] MEDS: GABAPENTIN 300 MG CAPSULE PO SCH ×3 (08:40→16:15)
[2018-12-04] MEDS: CEPHALEXIN MONOHYDRATE 500 MG CAPSULE PO SCH ×2 (08:41→16:15)
--- NOTE | 2018-12-04 09:42 | NUR ---
GPS RN NOTE TOOK MORNING PILLS WELL, ALL NEEDS ATTENDED
[2018-12-04] MEDS: ACETAMINOPHEN 325 MG TABLET PO PRN (11:06)
--- NOTE | 2018-12-04 11:27 | NUR ---
GPS RN NOTE VAUGHN RN REGULATORY ADMINISTRATOR SEE PATIENT NO NEW ORDER GIVEN AT THIS TIME
--- NOTE | 2018-12-04 15:43 | NUR ---
GPS RN NOTE C\O BEING ANXIOUS, ATIVAN PO 1 MG GIVEN ORDERED , ALL NEEDS ATTENDED
[2018-12-04 16:00] VITALS: BP 143/61
--- NOTE | 2018-12-04 18:07 | NUR ---
GPS RN NOTE PATIENT IN ROOM,HAVING DINNER , ALL NEEDS ATTENDED , ABLE TO EAT SELF , WILL CONT TO MONITOR CLOSELY
[2018-12-04 20:34] VITALS: BP 105/79
[2018-12-04] MEDS: TEMAZEPAM 7.5 MG CAPSULE PO PRN (22:59)
[2018-12-05] MEDS: LORAZEPAM 0.5 MG TABLET PO PRN ×2 (03:31→12:10)
[2018-12-05 08:00] VITALS: BP 123/66
[2018-12-05] MEDS: CEPHALEXIN MONOHYDRATE 500 MG CAPSULE PO SCH (08:41)
[2018-12-05] MEDS: GABAPENTIN 300 MG CAPSULE PO SCH ×2 (08:41→12:14)
[2018-12-05] MEDS: ARIPIPRAZOLE 5 MG TABLET PO SCH (08:41)
--- NOTE | 2018-12-05 10:57 | NUR ---
PC Hearing Notification: Pt stated that there is no one to notify about the PC hearing that will take place today.
[2018-12-05] MEDS: ACETAMINOPHEN 325 MG TABLET PO PRN (12:10)
--- NOTE | 2018-12-05 14:58 | NUR ---
Group Note: SW encouraged pt to attend group therapy on 12/05/18 at 1:30pm discussing support systems when they are in the hospital and for once they are discharged but the pt was unable to attend because she was attending her hearing.
[2018-12-05 16:00] VITALS: BP 155/91
--- NOTE | 2018-12-05 16:00 | NUR ---
MS RN NOTES PATIENT RELEASED BY COURT AND DR. MART DISCHARGED PATIENT TO [facility].
--- NOTE | 2018-12-05 16:00 | NUR ---
OMKAR called [facility] and left a voicemail message stating that the pt was discharged.
--- NOTE | 2018-12-05 16:14 | NUR ---
Discharge Note: Pt was discharged to [facility] located at [address] [place] [address]; . Pt was discharged at 3:30pm and was provided with a TAP card. Upon discharge, the pt appeared to be in a euthymic mood and presented with a calm affect. Pt was released from her hold due to her Probable Cause Hearing. Pt stated that she did not want a alf placement and wanted to continue working with [facility] that places her in shelters and assists her with receiving her medications. Pt will be under the care of a psychiatrist, Dr. Louis Holliday ([facility]), located at [address] [place] [address]; ; fax was sent to: [phone]. Pt was also referred to [facility], located at [address] [facility] [address], [place] [address]; for medical services. Pt was provided with homeless resources such as homeless shelters, food mei, substance abuse referrals, psychiatric and medical health services.
--- NOTE | 2018-12-05 16:35 | NUR ---
MS IRIS NOTES PATIENT DISCHARGED TO [facility] LOCATED AT [address] [place] [address]. PATIENT ALERT, ORIENTED X4. DISCHARGE INSTRUCTIONS PROVIDED VERBALIZED UNDERSTANDING. ALL DUE MEDICATIONS ADMINISTERED. PRESCRIPTION PROVIDED TO PATIENT. DISCHARGE PROTOCOL FOLLOWED. PATIENT REFUSED DISCHARGE PICTURES. PATIENT WAS PROVIDED WITH TAP CARD. ALL BELONGING ACCOUNTED FOR. BELONGING LIST SIGNED. PATIENT ESCORTED OUT BY KIM. Addendum: 12/05/18 at 1720 by DEMAR GEORGE RN PATIENT REFUSES SI/HI/AVH
== END 2018-12-05 16:35 | disposition home or self-care (01) | DRG 885 ==
LOC: ER 10:02 → GPS 20:40
PROVIDERS: ADMIT Psychiatry & Neurology Psychosomatic Medicine; ATTEND Internal Medicine
DX: F25.0 Schizoaffective disorder, bipolar type (principal); F23 Brief psychotic disorder; R45.851 Suicidal ideations; N39.0 Urinary tract infection, site not specified; E44.0 Moderate protein-calorie malnutrition; F17.210 Nicotine dependence, cigarettes, uncomplicated; F41.9 Anxiety disorder, unspecified; B96.89 Other specified bacterial agents as the cause of diseases classified elsewhere; F19.10 Other psychoactive substance abuse, uncomplicated; Z68.34 Body mass index [BMI] 34.0-34.9, adult; F32.9 Major depressive disorder, single episode, unspecified; E66.01 Morbid (severe) obesity due to excess calories; G89.29 Other chronic pain; M54.5 Low back pain; Z96.641 Presence of right artificial hip joint; Z96.653 Presence of artificial knee joint, bilateral; Z59.0 Homelessness; F10.129 Alcohol abuse with intoxication, unspecified
CPT/HCPCS: 36415; 80048-TC; 80061-TC; 80076-TC; 80305; 81000-TC; 82565-TC; 82962-TC; 85025-TC; 87081-TC; G0480; J1630; J2060

== ENCOUNTER 2019-03-11 10:43 | Emergency (ER) | payer MEDICARE, OTHER ==
[~2019-03-11] VITALS: Ht 157.5 cm; Wt 86.2 kg
--- NOTE | 2019-03-11 11:00 | NUR ---
[id number] and [employer], alcohol intoxication, found empty bottle of vodka beside the patient. On room air, breathing evenly and unlabored. connected to the monitor and pulse ox. kept comfortable, sitter at bedside. will continue to monitor accordingly.
[2019-03-11 11:29] LABS: BASOPHILS # (AUTO) 0.1 /CMM (0.0-0.2); BASOPHILS % (AUTO) 1.1 % (0.0-2.0); EOSINOPHILS % (AUTO) 1.4 % (0.0-6.0); HEMATOCRIT 35 % (33-45); HEMOGLOBIN 11.2 g/dL (11.5-14.8); LYMPHOCYTES # (AUTO) 2.2 /CMM (0.8-4.8); LYMPHOCYTES % (AUTO) 29.4 % (20.0-44.0); MEAN CORPUSCULAR HGB CONC 32 g/dl (31.0-36.0); MEAN CORPUSCULAR VOLUME 89 fL (82-100); MONOCYTES # (AUTO) 0.9 /CMM (0.1-1.30); MONOCYTES % (AUTO) 12.1 % (2.0-12.0); NEUTROPHILS # (AUTO) 4.2 /CMM (1.8-8.9); PLATELET COUNT (AUTO) 319 /CMM (150-450); RED BLOOD CELL COUNT(AUTO) 3.89 MIL/uL (4.0-5.2); WHITE BLOOD COUNT (AUTO) 7.5 K/uL (4.3-11.0)
[2019-03-11 11:42] LABS: CALCIUM, SERUM 8.3 mg/dL (8.5-10.1); CREATININE 0.6 mg/dL (0.6-1.3); POTASSIUM 3.7 mmol/L (3.5-5.1)
[2019-03-11 11:47] LABS: BILIRUBIN,DIRECT 0.1 mg/dL (0.0-0.2); BILIRUBIN,TOTAL 0.2 mg/dL (0.2-1.0); TOTAL PROTEIN, SERUM 6.7 g/dL (6.4-8.2)
[2019-03-11 11:48] LABS: SALICYLATE 1.8 mg/dL (2.8-20.0)
--- NOTE | 2019-03-11 12:02 | NUR ---
patient denies SI/HI.
--- NOTE | 2019-03-11 12:02 | NUR ---
called kitchen for food tray
--- NOTE | 2019-03-11 15:45 | NUR ---
urine collected and sent to lab
--- NOTE | 2019-03-11 15:45 | NUR ---
patient verbalized SI " i want to run thru traffic", made aware
[2019-03-11 15:54] VITALS: BP 110/81
[2019-03-11 15:56] LABS: APPEARANCE,URINE CLEAR (CLEAR); BILIRUBIN,URINE NEGATIVE (NEGATIVE); BLOOD, URINE MODERATE Ery/uL (NEGATIVE); COLOR,URINE YELLOW (YELLOW); KETONES,URINE NEGATIVE (NEGATIVE); LEUKOCYTE ESTERASE ,URINE NEGATIVE (NEGATIVE); NITRITE, URINE NEGATIVE (NEGATIVE); PROTEIN,URINE NEGATIVE (NEGATIVE); UGLUCOSE NEGATIVE (NEGATIVE); UROBILINOGEN,URINE 0.2 EU/dL (0.2)
--- NOTE | 2019-03-11 17:14 | NUR ---
patient in bedm asleep, in no distress, sitter at bedside for constant monitoring. Will continue to monitor accordingly.
--- NOTE | 2019-03-11 17:16 | NUR ---
clinicals and facesheet faxed to [facility]. awaiting call back.
--- NOTE | 2019-03-11 17:21 | NUR ---
faxed clinicals and facesheet to [facility]
--- NOTE | 2019-03-11 23:04 | NUR ---
PER IRIS ALANIZ FROM INTAKE, CLINICALS BEING REVIEWED BY NURSING SUP AND WILL CALL BACK WITH UPDATE WHEN AVAILABLE
--- NOTE | 2019-03-11 23:50 | NUR ---
PT ACCEPTED TO [facility] BY DR DE LEÓN. # FOR REPORT [phone]
--- NOTE | 2019-03-11 23:56 | NUR ---
[facility] CALLED FOR TRANSPORT. ETA 0100. TRIP# [id number]
--- NOTE | 2019-03-12 01:14 | NUR ---
[facility] AT BEDSIDE FOR TRANSPORT TO [facility].
== END 2019-03-12 01:15 ==
LOC: ER 10:46
DX: F10.229 Alcohol dependence with intoxication, unspecified (principal); R45.851 Suicidal ideations; R56.9 Unspecified convulsions; G89.29 Other chronic pain; M54.9 Dorsalgia, unspecified; F17.200 Nicotine dependence, unspecified, uncomplicated; Y90.8 Blood alcohol level of 240 mg/100 ml or more; Z88.8 Allergy status to other drugs, medicaments and biological substances; Z85.41 Personal history of malignant neoplasm of cervix uteri; Z96.653 Presence of artificial knee joint, bilateral; Z96.641 Presence of right artificial hip joint
CPT/HCPCS: 36415; 80048; 80076; 80305; 80307; 80329; 81001; 85025; 99285; G0480; 81000-TC

== ENCOUNTER 2019-07-16 07:17 | Emergency (ER) | payer MEDICARE, OTHER ==
[~2019-07-16] VITALS: Ht 157.5 cm; Wt 81.2 kg
--- NOTE | 2019-07-16 07:26 | NUR ---
, from [place], c/o right leg pain x 3 days, Hx right hip replacement. denies any trauma or injury. kept comfortable, will continue to monitor accordingly.
[2019-07-16] MEDS ORDERED: HYDROCODONE/APAP 5/325MG 1 EACH TABLET ONE (07:29)
[2019-07-16] MEDS ORDERED: HYDROCODONE/APAP 5/325MG 1 EACH TABLET PO ONE (07:30)
--- NOTE | 2019-07-16 10:43 | NUR ---
Patient given written and verbal discharge instructions. Patient verbalizes understanding of instructions. Patient provided with walker. Refuses offer of prison placement. Patient given list of available shelters in surrounding area. All belongings returned to patient, name band removed. Patient in proper clothing upon discharge. Patient was given sandwich and water. Tap card provided.
[2019-07-16 10:46] VITALS: BP 139/78
== END 2019-07-16 10:47 | disposition home or self-care (01) ==
LOC: ER 07:29
DX: M25.551 Pain in right hip (principal); G89.29 Other chronic pain; M54.9 Dorsalgia, unspecified; G40.909 Epilepsy, unspecified, not intractable, without status epilepticus; Z85.41 Personal history of malignant neoplasm of cervix uteri; Z96.641 Presence of right artificial hip joint; Z96.653 Presence of artificial knee joint, bilateral; Z88.1 Allergy status to other antibiotic agents
CPT/HCPCS: 73502

== ENCOUNTER 2019-09-10 15:42 | Emergency (ER) | payer MEDICARE, OTHER ==
[~2019-09-10] VITALS: Ht 157.5 cm; Wt 88.0 kg
--- NOTE | 2019-09-10 16:42 | NUR ---
[id number] FROM STREETS FOR ETOH FROM OUTSIDE OF [facility]. BG 142 PROJECT MANAGEMENT ENGINEER, PATIENT NOTED SHOUTING, TO ER BED 14, HOOKED TO MONITOR, WARM BLANKET PROVIDED, BREATHING EVEN AND UNLABORED, PATIENT NOT ASNWERING QUESTIONS.
--- NOTE | 2019-09-10 17:11 | NUR ---
DR NEWMAN AT BEDSIDE
[2019-09-10] MEDS ORDERED: HALOPERIDOL LACTATE INJ 5 MG/ML VIAL ONE ×2 (17:27→20:21)
[2019-09-10] MEDS ORDERED: diphenhydrAMINE HCL 50 MG/ML VIAL ONE (17:27)
[2019-09-10] MEDS ORDERED: HALOPERIDOL LACTATE INJ 5 MG/ML VIAL IM ONE ×3 (17:30→21:00)
[2019-09-10] MEDS ORDERED: diphenhydrAMINE HCL 50 MG/ML VIAL IM ONE (17:30)
--- NOTE | 2019-09-10 18:24 | NUR ---
PATIENT IN BED, AWAKE, HOOKED TO MONITOR, VSS. NOTED WITH LESS SHOUTING. SITTER AT BEDSIDE FOR SAFETY, WILL CONTINUE TO MONITOR.
--- NOTE | 2019-09-10 19:25 | NUR ---
ASSUMED CARE FOR THIS PT
--- NOTE | 2019-09-11 04:16 | NUR ---
PT RESTING COMFORTABLY IN BED. VSS. NO ACUTE DISTRESS NOTED. SITTER AT BEDSIDE FOR SAFETY
--- NOTE | 2019-09-11 05:00 | NUR ---
Patient is awake and alert to self, day, and place.Pt requesting to be discharged home. Pt ok to be discharged per Dr El. Patient discharged to home in stable condition. Written and verbal after care instructions given. Patient verbalizes understanding of instruction. pt ambulatory with a steady gait. Homeless waiver signed.
[2019-09-11 05:49] VITALS: BP 127/78
== END 2019-09-11 05:50 | disposition home or self-care (01) ==
LOC: ER 15:46
DX: F10.129 Alcohol abuse with intoxication, unspecified (principal); R41.82 Altered mental status, unspecified; G43.909 Migraine, unspecified, not intractable, without status migrainosus; G89.29 Other chronic pain; M54.9 Dorsalgia, unspecified; Y90.9 Presence of alcohol in blood, level not specified; Z85.41 Personal history of malignant neoplasm of cervix uteri; Z96.653 Presence of artificial knee joint, bilateral; Z96.641 Presence of right artificial hip joint; Z88.1 Allergy status to other antibiotic agents
CPT/HCPCS: 96372 ×3; 99284; J1200; J1630 ×2

== ENCOUNTER 2020-05-03 14:28 | Inpatient (IN) | payer MEDICARE, OTHER ==
[~2020-05-03] VITALS: Ht 167.6 cm; Wt 81.6 kg
[2020-05-03] MEDS ORDERED: LORAZEPAM INJ 2 MG/ML VIAL ONE (14:40)
[2020-05-03] MEDS ORDERED: LORAZEPAM INJ 2 MG/ML VIAL IM ONE (15:00)
--- NOTE | 2020-05-03 15:25 | NUR ---
PT RESTING IN BED APPEARS CALM AFTER [employer] LEFT. PT WAS GIVEN ATIVAN 2MG UPON ARRIVAL. PT NOW IS VERBALLY RESPONSIVE AND COOPERATIVE TO STAFF. ON MONITOR,SEEN BY CHAYITO. WITH ORDERS WILL CARRY OUT.
--- NOTE | 2020-05-03 15:37 | NUR ---
Social Service Consult: OMKAR consult request by ER staff for a 59 year old female. OMKAR met with pt at ER bed 15 with IRIS Tiwari) at 1330pm to assist with patient. OMKAR is unable to interview pt due to behavior issues and non cooperative. Pt is medicated with Ativan per nurse. Per EMR report, medication (Ativan 2mg) administered at 14:40 pm. Pt is aggressive and used profanity words. Pt kept saying "fuck" to law enforcement and ED staff.Per EMR, report, pt has hx of poly substance abuse. Pt toxicology is positive for methamphetamine and cannabinoids. OMKAR spoke to IRIS Tiwari) to contact social service liaison once the patient is ready to do an assessment. Plan: SW will follow up with the patient is agreeable to participate in interview and assessment. Addendum: 05/03/20 at 1556 by JHONATAN ESPITIA Social Service Consult: OMKAR consult request by ER staff for a 59 year old female. OMKAR met with pt at ER bed 15 with IRIS Tiwari) at 1330pm to assist with patient. OMKAR is unable to interview pt due to behavior issues and non cooperative. Pt is medicated with Ativan per nurse. Per EMR report, medication (Ativan 2mg) administered at 14:40 pm. Pt is aggressive and used profanity words. Pt kept saying "fuck" to law enforcement and ED staff.Per EMR, report, pt has hx of poly substance abuse. Pt toxicology is positive for methamphetamine and cannabinoids. OMKAR spoke to IRIS Tiwari) to contact social service liaison once the patient is ready to do an assessment. SW place addiction resources list in pt's chart. Plan: SW will follow up with the patient is agreeable to participate in interview and assessment.
--- NOTE | 2020-05-03 15:37 | NUR ---
PT ON A 0390 HOLD BY PD FOR DTO.
[2020-05-03 16:03] LABS: BASOPHILS # (AUTO) 0.1 /CMM (0.0-0.2); BASOPHILS % (AUTO) 1.7 % (0.0-2.0); EOSINOPHILS % (AUTO) 1.9 % (0.0-6.0); HEMATOCRIT 40 % (33-45); HEMOGLOBIN 13.3 g/dL (11.5-14.8); LYMPHOCYTES # (AUTO) 1.3 /CMM (0.8-4.8); LYMPHOCYTES % (AUTO) 24.3 % (20.0-44.0); MEAN CORPUSCULAR HGB CONC 33 g/dl (31.0-36.0); MEAN CORPUSCULAR VOLUME 89 fL (82-100); MONOCYTES # (AUTO) 0.4 /CMM (0.1-1.30); MONOCYTES % (AUTO) 7.3 % (2.0-12.0); NEUTROPHILS # (AUTO) 3.5 /CMM (1.8-8.9); NEUTROPHILS % (AUTO) 64.8 % (43.0-81.0); PLATELET COUNT (AUTO) 352 /CMM (150-450); RED BLOOD CELL COUNT(AUTO) 4.53 MIL/uL (4.0-5.2); WHITE BLOOD COUNT (AUTO) 5.4 K/uL (4.3-11.0)
[2020-05-03 16:24] LABS: CALCIUM, SERUM 9.2 mg/dL (8.5-10.1); CARBON DIOXIDE 28 mmol/L (21-32); CHLORIDE 100 mmol/L (98-107); CREATININE 0.9 mg/dL (0.6-1.3); GLUCOSE 105 mg/dL (74-106); SODIUM SERUM 139 mmol/L (136-145); UREA NITROGEN, BLOOD 16 mg/dL (7-18)
[2020-05-03 16:30] LABS: ALANINE AMINOTRANSFERASE 23 U/L (12-78); ALBUMIN 3.6 g/dL (3.4-5.0); ALCOHOL, BLOOD 128 mg/dL (0-0); ALKALINE PHOSPHATASE 72 U/L (46-116); ASPARTATE AMINOTRANSFERASE 22 U/L (15-37); TOTAL PROTEIN, SERUM 7.5 g/dL (6.4-8.2)
[2020-05-03 16:36] LABS: ACETAMINOPHEN 0 ug/ml (10-30)
--- NOTE | 2020-05-03 16:45 | NUR ---
PT PROVIDED W. MEAL TRAY. COOPERATIVE TO STAFF. STABLE VITALS.
[2020-05-03 16:53] LABS: BILIRUBIN,URINE NEGATIVE (NEGATIVE); COLOR,URINE YELLOW (YELLOW); LEUKOCYTE ESTERASE ,URINE TRACE (NEGATIVE); NITRITE, URINE NEGATIVE (NEGATIVE); PROTEIN,URINE NEGATIVE (NEGATIVE); UGLUCOSE NEGATIVE (NEGATIVE); UROBILINOGEN,URINE 0.2 EU/dL (0.2)
[2020-05-03 17:00] LABS: BACTERIA,URINE Rare /HPF (None Seen); RBC,URINE 0-2 /HPF (0-2); SQUAMOUS EPITHELIAL CELL,UR Few /HPF (None Seen); WBC,URINE 0-2 /HPF (0-3)
[2020-05-03 17:54] LABS: BILIRUBIN,DIRECT 0.1 mg/dL (0.0-0.2); BILIRUBIN,TOTAL 0.3 mg/dL (0.2-1.0)
[2020-05-03] MEDS ORDERED: LURA40TA PO (17:58)
[2020-05-03] MEDS ORDERED: BUPR300T52 PO (17:58)
[2020-05-03] MEDS ORDERED: ZIPRASIDONE MESYLATE 20 MG/VIAL VIAL IM ONE ×2 (20:18→20:30)
--- NOTE | 2020-05-03 21:09 | NUR ---
REPORT GIVEN TO ANTONIETA RN FOR LUNA
[2020-05-03] MEDS ORDERED: MAGNESIUM HYDROXIDE 30 ML UDC PO PRN (21:30)
[2020-05-03] MEDS ORDERED: LORAZEPAM 0.5 MG TABLET PO PRN (21:30)
[2020-05-03] MEDS ORDERED: ZOLPIDEM TARTRATE 5 MG TABLET PO PRN (21:30)
[2020-05-03] MEDS ORDERED: BLOOD SUGAR DIAGNOSTIC 1 EACH STRIP IN ONE (21:30)
[2020-05-03] MEDS ORDERED: MAG HYDROX/AL HYDROX/SIMETH 30 ML UDC PO PRN (21:30)
[2020-05-03] MEDS: ACETAMINOPHEN 325 MG TABLET PO PRN (22:39)
[2020-05-04 00:31] VITALS: BP 139/86
--- NOTE | 2020-05-04 00:55 | NUR ---
GPS PIECE MEAT TRIMMER NOTES: PATIENT ARRIVED THIS UNIT FROM ER, ESCORTED BY 2 ER STAFF ON STRETCHER. PATIENT IS ORIGINALLY FROM HOME. PATIENT IS ON A 5150 HOLD FOR DTO. PATIENT HOLD WAS PLACED ON 05/03/20 AT 1510. PER HOLD, PATIENT FOLLOWED HER NEIGHBOR TO HIS APARTMENT AND WAS BANGING ON HIS DOOR, ATTEMPTED HITTING THE NEIGHBOR WITH HER CANE, WAS SPITTING, ERRATIC AND DELUSIONAL, AND ADMITTED TO OFFICERS THAT SHE IS DEPRESSED. UPON FACE TO FACE EVALUATION, PATIENT PRESENTS A/O X2, APPEARS DEPRESSED, FLAT AFFECT, DISHEVELED, SLURRED SPEECH, ABLE TO FOLLOW DIRECTION, LABILE, AND PARANOID. SKIN ASSESSMENT DONE, PICTURES TAKEN AND PLACED IN PT. CHART. PATIENT REFUSED TO SIGN ALL PAPER WORK, ACCU CHEK DONE. PATIENT C/O BILATERAL KNEE PAIN, TYLENOL 325MG/2TABS/650MG GIVEN PO PRN ORDERED. PATIENT RIGHTS BOOKLET GIVEN. PATIENT IS UNDER THE PSYCHIATRIC CARE OF [facility] AND MEDICAL CARE OF [facility]. BOTH DOCTORS INFORMED OF PATIENT ADMISSION AND ORDER CARRIED OUT. PATIENT BELONGINGS WERE INVENTORIED AND CHECKED FOR CONTRABAND. IMMUNIZATIONS QUESTIONER AND NECESSARY PAPER WORK COMPLETED. PATIENT REFUSED PNA VACCINE, STATES SHE'S HAD FLU SHOT THIS SEASON. PATIENT ORIENTED TO ROOM, FLOOR AND STAFF. PATIENT EDUCATED ON THE USE OF CALL ROSALES. PATIENT BED SIDE RAILS UP X2 FOR SAFETY. PATIENT BED IS LOCKED AND IN LOWEST POSITION. Q15 MINUTES ROUNDS INITIATED. PATIENT CURRENTLY SLEEPING. WILL CONTINUE TO MONITOR PATIENT FOR SAFETY, MOOD, AND BEHAVIOR.
--- NOTE | 2020-05-04 06:06 | NUR ---
GPS RN CLOSING NOTES: PATIENT LAYING ON BED SLEEPING COMFORTABLY. SLEPT 7 HR THIS SHIFT. NO S/S OF DISTRESS. RESPIRATION EVEN AND UNLABORED WITH EQUAL RISE AND FALL OF THE CHEST ON ROOM AIR. SAFETY PRECAUTION MAINTAINED, BED IN LOWEST POSITION AND LOCKED. Q15 MINUTES SAFETY ROUND CONTINUED. ALL PATIENT CARE NEEDS MET ANTICIPATED. WILL CONTINUE TO MONITOR PATIENT FOR MOOD, BEHAVIOR AND SAFETY AND ENDORSE TO AM SHIFT.
[2020-05-04 06:56] LABS: BILIRUBIN,TOTAL 0.5 mg/dL (0.2-1.0); CALCIUM, SERUM 8.6 mg/dL (8.5-10.1); CREATININE 0.7 mg/dL (0.6-1.3); POTASSIUM 4.1 mmol/L (3.5-5.1); TOTAL PROTEIN, SERUM 6.5 g/dL (6.4-8.2)
[2020-05-04 07:03] LABS: CHOLESTEROL 147 mg/dL (<200); HDL CHOLESTEROL 47 mg/dL (40-60); LDL 83 mg/dL (0-99); TRIGLYCERIDES 70 mg/dL (30-150)
[2020-05-04 08:00] VITALS: BP 117/83
--- NOTE | 2020-05-04 08:29 | NUR ---
rn notes administered Ativan 1 mg po prn for anxiety per patient request, bp- 117/83, p-90. patent walking around the hallway, irritable easily. will monitoring.
[2020-05-04] MEDS: THIAMINE HCL 100 MG TABLET PO SCH (14:00)
[2020-05-04] MEDS: LORAZEPAM 0.5 MG TABLET PO PRN ×2 (14:48→20:30)
[2020-05-04 16:00] VITALS: BP 158/99
[2020-05-04] MEDS: ARIPIPRAZOLE 5 MG TABLET PO SCH (16:53)
[2020-05-04 20:52] VITALS: BP 119/77
[2020-05-05] MEDS: ACETAMINOPHEN 325 MG TABLET PO PRN ×2 (05:50→17:22)
[2020-05-05 08:00] VITALS: BP 116/70
[2020-05-05] MEDS: THIAMINE HCL 100 MG TABLET PO SCH (08:28)
[2020-05-05] MEDS: ARIPIPRAZOLE 5 MG TABLET PO SCH ×2 (08:28→17:19)
[2020-05-05] MEDS: MULTIPLE VIT (LYCOPENE/FA/MV,CA,IRON,MIN/LUT)1 TAB PO SCH (08:28)
[2020-05-05] MEDS: LORAZEPAM 0.5 MG TABLET PO PRN ×3 (08:31→21:17)
--- NOTE | 2020-05-05 08:33 | NUR ---
RN NOTES PT NOTED ANXIOUS AND REFUSED PHYSICAL EVALUATION TODAY. SHE REQUESTED FOR ATIVAN. ATIVAN 1MG PO GIVEN AT 0830. WILL CONTINUE TO MONITOR PT.
--- NOTE | 2020-05-05 14:32 | NUR ---
RN NOTES PATIENT NOTED ANXIOUS AND REQUESTED FOR HER ATIVAN. ATIVAN 1MG PO GIVEN AT 1429. WILL CONTINUE TO MONITOR PT.
[2020-05-05 16:00] VITALS: BP 104/57
--- NOTE | 2020-05-05 17:23 | NUR ---
RN NOTES PT C/O OF ACHING LOWER BACK PAIN AND REQUESTED FOR PAIN MEDICATION. PRN TYLENOL 650MG PO GIVEN AT 1722. WILL CONTINUE TO MONITOR.
[2020-05-05 19:54] VITALS: BP 118/57
[2020-05-06 08:00] VITALS: BP 131/70
[2020-05-06] MEDS: ARIPIPRAZOLE 5 MG TABLET PO SCH (08:19)
[2020-05-06] MEDS: LORAZEPAM 0.5 MG TABLET PO PRN (08:19)
[2020-05-06] MEDS: THIAMINE HCL 100 MG TABLET PO SCH (08:19)
[2020-05-06] MEDS: MULTIPLE VIT (LYCOPENE/FA/MV,CA,IRON,MIN/LUT)1 TAB PO SCH (08:19)
--- NOTE | 2020-05-06 11:05 | NUR ---
Substance Abuse Intervention: SW attempted to conduct a substance abuse intervention with the pt due to alcohol and cannabis abuse but the pt was resistant to participating in the intervention.
--- NOTE | 2020-05-06 11:22 | NUR ---
Initial Discharge Plan: Pt currently resides in an apartment located [address] [place] [address]; ([phone]). Per pt, she would like to return to her apartment. SW will work with the pt and pts MD regarding appropriate discharge planning. SW will form a safe and proper discharge.
--- NOTE | 2020-05-06 11:23 | NUR ---
Discharge Note: Pt will be discharged to her apartment located at [address] [place] [address], [address] [address]; ([phone]). Pt is being discharged against medical advice (AMA). Pt will be discharged around 11:30AM. Pt will not be provided with a taxi voucher and will take the bus back to her home. SW confirmed that the pt has keys to her apartment in her belongings. Upon discharge, pt appears to be in a dysphoric mood and presents with an agitated affect. Pt denies both suicidal and homicidal ideation as well as auditory and visual hallucinations. Pt appears to be alert and oriented x4 (time, place, self and situation). Pt appears to be ambulatory with an unsteady gait. Pt appears to be well groomed and appropriately dressed. Pt receives psychiatric services at [facility] located at [address] [place] [address]; ; fax of records was sent to: . Pt states that she does not have an erisa attorney and SW was unable to assist with a referral as the pt is leaving against medical advice. The multidisciplinary exit care form was done, printed, signed, and given to the patient.
--- NOTE | 2020-05-06 11:30 | NUR ---
Patient requesting to leave. PATIENT IN STABLE CONDITION WITH NO S/S OF PAIN OR DISTRESS. PATIENT EDUCATED ON CARE PLAN AND WHY IT IS IMPORTANT TO STAY TO CONTINUE CARE. PATIENT STATED THAT SHE UNDERSTANDS CARE PLAN BUT WOULD LIKE TO LEABE AT THIS TIME. ALL PATIEN'S BELONGINGS RETURNED TO PATIENT. PATIENT DISCHARGED AGAINST MEDICAL ADVICE IN STABLE CONDITION. END NOTE. BN
== END 2020-05-06 10:45 | disposition left against medical advice (07) | DRG 885 ==
LOC: ER 14:33 → GPS 20:55
PROVIDERS: ADMIT Psychiatry & Neurology Psychiatry; ATTEND Hospitalist
DX: F31.64 Bipolar disorder, current episode mixed, severe, with psychotic features (principal); F10.259 Alcohol dependence with alcohol-induced psychotic disorder, unspecified; F41.9 Anxiety disorder, unspecified; Z85.41 Personal history of malignant neoplasm of cervix uteri; G40.909 Epilepsy, unspecified, not intractable, without status epilepticus; M19.90 Unspecified osteoarthritis, unspecified site; G89.29 Other chronic pain; F17.200 Nicotine dependence, unspecified, uncomplicated; Z96.653 Presence of artificial knee joint, bilateral; Z96.641 Presence of right artificial hip joint; Z88.1 Allergy status to other antibiotic agents; Z79.899 Other long term (current) drug therapy; F19.10 Other psychoactive substance abuse, uncomplicated; F29 Unspecified psychosis not due to a substance or known physiological condition; Z73.6 Limitation of activities due to disability; R27.8 Other lack of coordination; Z91.81 History of falling; Y90.6 Blood alcohol level of 120-199 mg/100 ml; Z91.14 Patient's other noncompliance with medication regimen; Z59.0 Homelessness
CPT/HCPCS: 36415; 80048-TC; 80053-TC; 80061-TC; 80076-TC; 81001; 82962-TC; 84484-TC; 85025-TC; 87081-TC; C9803; G0480; J2060; J3486

== ENCOUNTER 2020-05-27 08:51 | Emergency (ER) | payer MEDICARE, OTHER ==
[~2020-05-27] VITALS: Ht 154.9 cm; Wt 93.0 kg
--- NOTE | 2020-05-27 08:51 | NUR ---
PT BIBRA FROM THE STREET C/O R HIP PAIN NON TRAUMATIC. PT IS AAOX4, NOT IN RESPIRATORY DISTRESS, V/S STABLE, KEPT RESTED AND COMFORTABLE. WILL CONTINUE TO MONITOR.
--- NOTE | 2020-05-27 08:59 | NUR ---
PT SEEN AND EXAMINED BY .
--- NOTE | 2020-05-27 09:46 | NUR ---
CALLED OMKAR WHITE WILL BE DOWN TO HELP.
--- NOTE | 2020-05-27 10:10 | NUR ---
OMKAR DIALLO AT BEDSIDE FOR EVAL.
--- NOTE | 2020-05-27 12:03 | NUR ---
PATIENT AMBULATED USING WALKER GOING TO RESTROOM.
[2020-05-27 12:23] VITALS: BP 139/76
--- NOTE | 2020-05-27 12:23 | NUR ---
Patient given written and verbal discharge instructions. Patient verbalizes understanding of instructions. Patient is ambulatory with steady gait using walker. Refuses offer of longterm placement. Patient given list of available shelters in surrounding area. Patient in proper clothing upon discharge, name band removed. Food provided. All belongings w the patient.
--- NOTE | 2020-05-27 15:44 | NUR ---
"Professor Of Astronomy Consult: Professor Of Astronomy consult requested for homelessness. Patient is a 59-year-old, white female. Per ED physician patient was brought in by paramedics after complaining of right hip pain. SW met with the patient at the emergency department. Patient is alert and oriented x4 and well-groomed. Per Dr. Oropeza, patient can ambulate with a walker. Patient stated that she is homeless and was previously living at [facility] in [place]. Pt states that she receives social security income. Patient stated that she has no social support. Patient stated no history of substance or alcohol use and no thoughts of suicide or homicide. SW discussed options for discharge with the patient. Patient was discharged to prior living arrangements and was provided with a walker, poncho, food, and homeless resources. Patient signed the homeless waiver and SW placed the waiver in the patient's chart. Resources provided include: [place] [facility]: [place] [employer] Provider: [facility] Address: [facility] [place] [address] # of Beds: 47 Population Served: [facility] 6 | [facility] Provider: [facility] Last Address: [address], [facility] # of Beds: 66 Population Served: [facility] Provider: First to Serve Address: [address] [facility], [facility] # of Beds: 56 Population Served: [facility] Palmer Tay[employer]azquez [employer] Provider: [facility] Address: [address] [facility], [facility] # of Beds: 49 Population Served: [facility] 8 | [facility] Provider: First to Serve Address: [address] [facility], [address] # of Beds: 37 Population Served: [facility] Hygiene: [facility]: [address] ; [facility] [address] [facility] ; [facility] [address] [place] . Food Resources: [place] [facility] at [facility]- [address]. [place]; Meet Each Need with Dignity ([facility]) [address] [address]; [facility] Food [facility] [address] [facility]; [facility] [address]. Mental Health resources provided: [facility] [address] [place], [place] [address] ; [facility] [address] [facility] [address], [place], [place] [id number] ; [facility] Mental [facility] [address] [facility] [place], [place] [phone] ; [facility] [address] [place], [place] [id number] Healthcare Clinics: [facility] [address] [facility], [address] [place]. [place] ; [facility] [address] [facility] [address] [place] [address]; [facility] [address] [facility] [place] [address] [phone] Counseling--Outpatient [facility] [address] [facility], [facility] [place] [address] (Specializes in in-depth psychotherapy for emotional distress: anxiety, depression, interpersonal conflicts, life transitions, childhood abuse) [facility] [address] [place] [address] (Assist with solving problem marital difficulties, separation & divorce, aging parents, & grief, chronic & terminal illness) [facility] [address] [place] [address] (Deal with loss & grief, anxiety, marital difficulties) Homebound/Mental Health Services [address] [facility], [address] [place], [place] [id number] (Provide in-home mental services to people who are incapable of leaving their homes) [facility] Senior Service[facility]Resource Center [address] [place] [address] Partial Hospitalization Program and Outpatient at [facility] [address] [place], [place] [phone] [facility] [address] [place], [place] [address] PSYCHIATRIC OUTPATIENT SERVICES [facility] Partial Hospitalization and Intensive Outpatient Program (Managed Care and [place] Only)[address] [address] [facility] [phone] [facility] Partial Hospitalization and Outpatient [address]hhy[address] [place], [place] [phone] [facility] Partial Hospitalization and Outpatient [id number] [place], [place] [phone] [facility] [id number] [place], [place] [phone] [facility] [address] [place] Partial Hospitalization and Outpatient [id number] Farida Vazquez [place], [phone] "
== END 2020-05-27 12:24 | disposition home or self-care (01) ==
LOC: ER 08:58
DX: M25.551 Pain in right hip (principal); I10 Essential (primary) hypertension; F32.9 Major depressive disorder, single episode, unspecified; G40.909 Epilepsy, unspecified, not intractable, without status epilepticus; G89.29 Other chronic pain; M19.90 Unspecified osteoarthritis, unspecified site; F17.200 Nicotine dependence, unspecified, uncomplicated; Z96.653 Presence of artificial knee joint, bilateral; Z96.641 Presence of right artificial hip joint; Z88.1 Allergy status to other antibiotic agents; Z59.0 Homelessness
CPT/HCPCS: 72170-TC; 73502

== ENCOUNTER 2020-06-13 15:10 | Inpatient (IN) | payer MEDICARE, OTHER ==
[~2020-06-13] VITALS: Ht 154.9 cm; Wt 83.9 kg
--- NOTE | 2020-06-13 15:10 | NUR ---
PT [id number] FROM [facility] C/O R HIP PAIN. PT IS AAOX4, NOT IN RESPIRATORY DISTRESS, HOOKED TO ROTATING EQUIPMENT ENGINEER, KEPT RESTED AND COMFORTABLE. WILL CONTINUE TO MONITOR.
--- NOTE | 2020-06-13 15:21 | NUR ---
SEEN AND EXAMINED BY .
--- NOTE | 2020-06-13 15:25 | NUR ---
STILL CLEANER AT BEDSIDE FOR XRAY.
[2020-06-13] MEDS ORDERED: ONDANSETRON HCL/PF 4 MG/2 ML VIAL IVP ONE (15:30)
[2020-06-13] MEDS ORDERED: ONDANSETRON HCL/PF 4 MG/2 ML VIAL ONE (15:30)
[2020-06-13] MEDS ORDERED: HYDROMORPHONE INJ 2 MG/ML DISP.SYRIN IV ONE (15:30)
[2020-06-13] MEDS ORDERED: HYDROMORPHONE 1 MG/1 ML DISP.SYRIN ONE ×2 (15:30→16:58)
--- NOTE | 2020-06-13 15:39 | NUR ---
consent obtained from pt for moderate sedation close reduction of right hip dislocation
[2020-06-13] MEDS ORDERED: FENTANYL PF 100MCG/2ML AMPUL ONE (15:51)
[2020-06-13] MEDS ORDERED: MIDAZOLAM HCL 2 MG/2ML VIAL ONE (15:51)
[2020-06-13] MEDS ORDERED: MIDAZOLAM HCL 5 MG/5ML VIAL ONE (15:53)
[2020-06-13] MEDS ORDERED: MIDAZOLAM HCL 2 MG/2ML VIAL IV ONE (16:00)
[2020-06-13] MEDS ORDERED: FENTANYL PF 100MCG/2ML AMPUL IV ONE (16:00)
--- NOTE | 2020-06-13 16:00 | NUR ---
REDUCTION DONE BY .
--- NOTE | 2020-06-13 16:08 | NUR ---
KAZ CALI AT BEDSIDE FOR POST REDUCTION OF THE R HIP
--- NOTE | 2020-06-13 16:42 | NUR ---
ROOM ASSIGNEMENT: 116
[2020-06-13 16:43] LABS: BASOPHILS # (AUTO) 0.1 /CMM (0.0-0.2); BASOPHILS % (AUTO) 1.8 % (0.0-2.0); EOSINOPHILS % (AUTO) 5.2 % (0.0-6.0); HEMATOCRIT 35 % (33-45); HEMOGLOBIN 11.3 g/dL (11.5-14.8); LYMPHOCYTES # (AUTO) 1.9 /CMM (0.8-4.8); LYMPHOCYTES % (AUTO) 35.2 % (20.0-44.0); MEAN CORPUSCULAR HGB CONC 32 g/dl (31.0-36.0); MEAN CORPUSCULAR VOLUME 90 fL (82-100); MONOCYTES # (AUTO) 0.5 /CMM (0.1-1.30); MONOCYTES % (AUTO) 10.1 % (2.0-12.0); NEUTROPHILS # (AUTO) 2.5 /CMM (1.8-8.9); NEUTROPHILS % (AUTO) 47.7 % (43.0-81.0); PLATELET COUNT (AUTO) 363 /CMM (150-450); RED BLOOD CELL COUNT(AUTO) 3.89 MIL/uL (4.0-5.2); WHITE BLOOD COUNT (AUTO) 5.3 K/uL (4.3-11.0)
[2020-06-13 16:52] LABS: CALCIUM, SERUM 8.5 mg/dL (8.5-10.1); CREATININE 0.6 mg/dL (0.6-1.3)
[2020-06-13] MEDS ORDERED: HYDROMORPHONE 1 MG/1 ML DISP.SYRIN IV ONE (17:00)
[2020-06-13] MEDS ORDERED: ACETAMINOPHEN 325 MG TABLET PO PRN (17:30)
[2020-06-13] MEDS ORDERED: MAG HYDROX/AL HYDROX/SIMETH 30 ML UDC PO PRN (17:30)
[2020-06-13] MEDS ORDERED: MORPHINE SULFATE INJ 2 MG/ML DISP.SYRIN IV PRN (17:30)
[2020-06-13] MEDS ORDERED: MAGNESIUM HYDROXIDE 30 ML UDC PO PRN (17:30)
[2020-06-13] MEDS ORDERED: ONDANSETRON HCL/PF 4 MG/2 ML VIAL IVP PRN (17:30)
[2020-06-13] MEDS ORDERED: Z GUARD REMEDY 2 OZ OINT TP PRN (17:30)
--- NOTE | 2020-06-13 17:40 | NUR ---
REPORT GIVEN TO IRIS ROSALES FOR LUNA.
--- NOTE | 2020-06-13 19:12 | NUR ---
PATIENT RECEIVED FROM ER. VITAL SIGNS TAKEN. PRN MORPHINE AND ZOFRAN ADMINISTERED FOR RIGHT HIP PAIN 10/10 AND COMPLAINTS OF NAUSEA. SAFETY PRECAUTIONS IMPLEMENTED, BED LOCKED IN LOWEST POSITION, SIDE RAILS UP X2, CALL LIGHT WITHIN REACH. WILL ENDORSE CARE AND CONTINUATION OF ADMISSION TO UPCOMING SHIFT.
[2020-06-13 19:26] VITALS: BP 144/86
--- NOTE | 2020-06-13 19:30 | NUR ---
MS RN NOTE ADMITTED 60 YEARS OLD FEMALE PT FROM ER WITH THE DX OF SUBLAXATION OF THE HIP BY DR KHAN. PT IS A/O X 3, NO SOB NOTED. C/O RT HIP PAIN 10/22 DAY SHIFT NURSE GAVE THE MORPHINE IVP. WILL CONTINUE TO MONITOR HER PAIN. PT REFUSE TO DO SKIN ASSESSMENT DUE TO PAIN. VSS. CONTINUE TO MONITOR HER. SIDE RAILS UP X 2 AND CALL LIGHT WITHIN REACH. ORIENTED HER TO HER ROOM.
[2020-06-13] MEDS: MORPHINE SULFATE INJ 2 MG/ML DISP.SYRIN IV PRN (20:51)
[2020-06-13] MEDS: IV 1/2NS 1000 ML 1,000 ML IV PRN (21:00)
--- NOTE | 2020-06-13 22:00 | NUR ---
MS RN NOTE SKIN ASSESSMENT DONE. PICTURES TAKEN AND PLACE THEM IN THE CHART. ALSO WOUND CONSULT TRIGGERED.
[2020-06-14] MEDS: HYDROCODONE/APAP 5/325MG TABLET PO PRN ×5 (00:46→18:42)
[2020-06-14] MEDS: MORPHINE SULFATE INJ 2 MG/ML DISP.SYRIN IV PRN ×5 (02:53→21:07)
--- NOTE | 2020-06-14 06:32 | NUR ---
MS RN NOTE PT IN BED ASLEEP, NO DISTRESS OR DISCOMFORT NOTED. DENIES PAIN. SIDE RAILS UP X 2 AND CALL LIGHT WITHIN REACH. VSS. WILL ENDORSE TO DAY SHIFT NURSE.
[2020-06-14 06:41] LABS: BASOPHILS % (AUTO) 0.4 % (0.0-2.0); EOSINOPHILS % (AUTO) 4.7 % (0.0-6.0); HEMATOCRIT 33 % (33-45); HEMOGLOBIN 10.8 g/dL (11.5-14.8); LYMPHOCYTES # (AUTO) 1.5 /CMM (0.8-4.8); LYMPHOCYTES % (AUTO) 24.3 % (20.0-44.0); MEAN CORPUSCULAR HGB CONC 33 g/dl (31.0-36.0); MEAN CORPUSCULAR VOLUME 88 fL (82-100); MONOCYTES # (AUTO) 0.7 /CMM (0.1-1.30); NEUTROPHILS # (AUTO) 3.7 /CMM (1.8-8.9); NEUTROPHILS % (AUTO) 59.6 % (43.0-81.0); PLATELET COUNT (AUTO) 333 /CMM (150-450); RED BLOOD CELL COUNT(AUTO) 3.73 MIL/uL (4.0-5.2); WHITE BLOOD COUNT (AUTO) 6.2 K/uL (4.3-11.0)
[2020-06-14 07:07] LABS: ALBUMIN 2.9 g/dL (3.4-5.0); BILIRUBIN,TOTAL 0.3 mg/dL (0.2-1.0); CALCIUM, SERUM 8.5 mg/dL (8.5-10.1); CREATININE 0.5 mg/dL (0.6-1.3); MAGNESIUM 1.8 mg/dL (1.8-2.4); PHOSPHORUS 3.7 mg/dL (2.5-4.9); POTASSIUM 4.1 mmol/L (3.5-5.1); TOTAL PROTEIN, SERUM 6.6 g/dL (6.4-8.2)
--- NOTE | 2020-06-14 07:30 | NUR ---
RN OPENING NOTE PATIENT IS CURRENTLY IN BED WITH HOB AT 15 DEGREES. AOX3. NO SIGNS OF LABORED BREATHING ON ROOM AIR. NASAL SCAB, 3RD TOE SCAB, AND 5TH TOE SCAB ARE NOTED. LAC #18 IS LEAKING, WILL DISCONTINUE AND ATTEMPT TO INSERT NEW IV ACCESS. BED IS LOCKED IN THE LOWEST POSITION, 3 GUARD RAILS RAISED, CALL ROSALES WITHIN REACH, AND ALL HOSPITAL SAFETY PRECAUTIONS ARE BEING FOLLOWED. WILL CONTINUE TO MONITOR THROUGHOUT SHIFT.
[2020-06-14 08:00] VITALS: BP 152/87
--- NOTE | 2020-06-14 08:00 | NUR ---
RN NOTE LAC #18 HAS BEEN DISCONTINUED. NEW RAC #20 HAS BEEN INSERTED AND IS PATENT AND INTACT.
--- NOTE | 2020-06-14 10:29 | NUR ---
PHARMACY INTAKE COORDINATOR NOTES SPOKE WITH REDDY AT DR. SANCHEZ'S OFFICE REGARDING ORTHO CONSULTATION FOR THIS PATIENT.
--- NOTE | 2020-06-14 10:30 | NUR ---
RN NOTE NOTIFIED DR. SAAB OF BP 152/87. STATED THAT IT'S OKAY AND HE WILL TAKE CARE OF IT. WILL CONTINUE TO MONITOR.
[2020-06-14] MEDS: IV 1/2NS 1000 ML 1,000 ML IV PRN (13:15)
[2020-06-14 16:00] VITALS: BP 140/63
--- NOTE | 2020-06-14 17:15 | NUR ---
RN NOTE RECEIVED CONSENT FOR ANESTHESIA, BLOOD TRANSFUSION, AND PROCEDURE FOR CLOSED REDUCTION OF RIGHT HIP TOMORROW IN AM.
--- NOTE | 2020-06-14 18:35 | NUR ---
RN CLOSING NOTE PATIENT IS CURRENTLY IN BED WITH HOB AT 15 DEGREES. AOX3. NO SIGNS OF LABORED BREATHING ON ROOM AIR. NASAL SCAB, 3RD TOE SCAB, AND 5TH TOE SCAB ARE NOTED. RAC#20 IS PATENT AND INTACT. BED IS LOCKED IN THE LOWEST POSITION, 3 GUARD RAILS RAISED, CALL ROSALES WITHIN REACH, AND ALL HOSPITAL SAFETY PRECAUTIONS ARE BEING FOLLOWED. PRN PAIN MEDS GIVEN THROUGHOUT SHIFT AND PATIENT REMAINED STABLE. CONSENT IS SIGNED AND AWAITING SURGERY IN THE MORNING. PATIENT TO BE NPO AFTER MIDNIGHT. WILL ENDORSE TO PROJECT COORDINATOR RN RN.
--- NOTE | 2020-06-14 19:13 | NUR ---
RN NOTE RECEIVED PT IN BED WITH HEAD OF BED ELEVATED. PT IS AWAKE AND ALERT/ORIENTED X 4. ON ROOM AIR. RESPIRATIONS UNLABORED. WITH COMPLAINT OF MILD RIGHT HIP PAIN. IBRAHIMA ADMINISTER PRN ANALGESIC ORDERED. GARCIA CATHETER PATENT AND IN PLACE DRAINING URINE. WITH RIGHT AC 18G IV WITH 0.45% NS @ 75ML/HOUR RUNNING ORDERED WITHOUT COMPLICATIONS NOTED AT SITE, PT HAVING SURGERY TOMORROW. WILL BE NPO AFTER MIDNIGHT. PLAN OF CARE DISCUSSED, PT VERBALIZED UNDERSTANDING. CALL SHARIFA PATIENT IS CURRENTLY IN BED WITH HOB AT 15 DEGREES. AOX3. NO SIGNS OF LABORED BREATHING ON ROOM AIR. NASAL SCAB, 3RD TOE SCAB, AND 5TH TOE SCAB ARE NOTED. RAC#20 IS PATENT AND INTACT. BED IS LOCKED IN THE LOWEST POSITION, 3 GUARD RAILS RAISED, CALL ROSALES WITHIN REACH, AND ALL HOSPITAL SAFETY PRECAUTIONS ARE BEING FOLLOWED. PRN PAIN MEDS GIVEN THROUGHOUT SHIFT AND PATIENT REMAINED STABLE. CONSENT IS SIGNED AND AWAITING SURGERY IN THE MORNING. PATIENT TO BE NPO AFTER MIDNIGHT. WILL ENDORSE TO GROUNDS CARETAKER RN. Addendum: 06/14/20 at 1939 by KRISH BRUNO RN ERROR. @1915 RECEIVED PT IN BED WITH HEAD OF BED ELEVATED. PT IS AWAKE AND ALERT/ORIENTED X 4. ON ROOM AIR. RESPIRATIONS UNLABORED. WITH COMPLAINT OF MILD RIGHT HIP PAIN. IBRAHIMA ADMINISTER PRN ANALGESIC ORDERED. AGRCIA CATHETER PATENT AND IN PLACE DRAINING URINE. WITH RIGHT AC 18G IV WITH 0.45% NS @ 75ML/HOUR RUNNING ORDERED WITHOUT COMPLICATIONS NOTED AT SITE, PT HAVING SURGERY TOMORROW. WILL BE NPO AFTER MIDNIGHT. PLAN OF CARE DISCUSSED, PT VERBALIZED UNDERSTANDING. CALL LIGHT WITHIN REACH, SAFETY MEASURES IN PLACE PER PROTOCOL, BED ALARM ON, BED LOCKED AND IN LOW POSITION, SIDE RAILS UP X 2, WILL MONITOR.
[2020-06-14 20:00] VITALS: BP 133/75
[2020-06-14] MEDS: ZOLPIDEM TARTRATE 10 MG TABLET PO PRN (21:07)
--- NOTE | 2020-06-15 01:15 | NUR ---
MS RN NOTES PATIENT SLEEPING IN BED, A/OX3 & ABLE TO MAKE NEEDS KNOWN. ON ROOM AIR AND TOLERATING WELL WITH NO SOB. PATIENT IS COMFORTABLE AND DENIES PAIN AT THIS TIME. MAINTAINED NPO DIET FOR SURGERY.RAC #18G; INFUSING 0.45 NS @ 75ML/HR; PATENT AND INTACT. SAFETY MEASURES IN PLACE: BED IN LOWEST LOCKED POSITION, SIDERAILS UPX3; CALL LIGHT WITHIN REACH, BED ALARMS ON. WILL CONTINUE PLAN OF CARE.
[2020-06-15] MEDS: MORPHINE SULFATE INJ 2 MG/ML DISP.SYRIN IV PRN ×5 (02:02→19:48)
--- NOTE | 2020-06-15 02:02 | NUR ---
MS RN NOTES- PAIN PATIENT C/O 10/22 PAIN TO RIGHT HIP. SKIN INTACT AND NO BRUISING NOTED. ADMINISTERED MORPHINE ORDERED. WILL CONTINUE TO ASSESS FOR PAIN
[2020-06-15 04:00] VITALS: BP 134/82
[2020-06-15] MEDS: IV 1/2NS 1000 ML 1,000 ML IV PRN (04:29)
--- NOTE | 2020-06-15 06:04 | NUR ---
MS RN NOTES- PAIN PATIENT C/O 10/22 PAIN TO RIGHT HIP. SKIN INTACT AND NO BRUISING NOTED. ADMINISTERED MORPHINE ORDERED. WILL CONTINUE TO ASSESS FOR PAIN
--- NOTE | 2020-06-15 06:19 | NUR ---
MS RN CLOSING NOTES PATIENT SLEEPING IN BED, A/OX3 & ABLE TO MAKE NEEDS KNOWN. ON ROOM AIR AND TOLERATING WELL WITH NO SOB. PATIENT IS COMFORTABLE AND DENIES PAIN AT THIS TIME. RAC #18G; INFUSING 0.45 NS @ 75ML/HR; PATENT AND INTACT. PATIENT SIGNED SURGERY CONSENT FORMS FOR: CLOSED REDUCTION OF DISLOCATED RIGHT HIP.MAINTAINED NPO DIET. F/C DRAINING CLEAR YELLOW URINE; PATENT AND INTACT. SAFETY MEASURES IN PLACE: BED IN LOWEST LOCKED POSITION, SIDERAILS UPX3; CALL LIGHT WITHIN REACH, BED ALARMS ON. WILL ENDORSE PLAN OF CARE. TO ONCOMING MORNING RN
[2020-06-15 08:00] VITALS: BP 129/64
[2020-06-15] MEDS ORDERED: ANESTHESIA TRAY IN PYXIS 1 EA TRAY MC ONE (08:44)
--- NOTE | 2020-06-15 09:21 | NUR ---
RN OPENING NOTE PATIENT IS CURRENTLY IN BED ASLEEP. PATIENT IS AOX3. NO SIGNS OF LABORED BREATHING ON ROOM AIR. GARCIA IS IN PLACE. TOE SCABS AND NASAL SCAB NOTED. RAC#20 IS PATENT, INTACT, AND HAS NO SIGNS OF INFILTRATION. BED IS LOCKED IN THE LOWEST POSITION, 3 GUARD RAILS RAISED, CALL ROSALES WITHIN REACH, AND ALL HOSPITAL SAFETY PRECAUTIONS ARE BEING FOLLOWED. WILL CONTINUE TO MONITOR THROUGHOUT SHIFT.
[2020-06-15] MEDS ORDERED: MIDAZOLAM HCL 2 MG/2ML VIAL ONE (09:30)
[2020-06-15] MEDS ORDERED: FENTANYL PF 100MCG/2ML AMPUL ONE (09:30)
[2020-06-15 12:00] VITALS: BP 135/59
[2020-06-15] MEDS: Potassium Chloride 20 MEQ in IV D5/0.45 NACL 1,000 ML IV PRN (13:45)
[2020-06-15] MEDS: HYDROCODONE/APAP 5/325MG TABLET PO PRN ×4 (14:00→23:32)
[2020-06-15 16:00] VITALS: BP 118/68
--- NOTE | 2020-06-15 18:48 | NUR ---
RN CLOSING NOTE PATIENT IS CURRENTLY IN BED ASLEEP. PATIENT IS AOX3. NO SIGNS OF LABORED BREATHING ON ROOM AIR. GARCIA IS IN PLACE. TOE SCABS AND NASAL SCAB NOTED. RAC#20 IS PATENT, INTACT, AND HAS NO SIGNS OF INFILTRATION. BED IS LOCKED IN THE LOWEST POSITION, 3 GUARD RAILS RAISED, CALL ROSALES WITHIN REACH, AND ALL HOSPITAL SAFETY PRECAUTIONS ARE BEING FOLLOWED. ABDUCTOR PILLOW IS IN PLACE. PAIN MEDS GIVEN DURING SHIFT AND PATIENT REMAINED STABLE. WILL ENDORSE TO JAR CAPPER RN FOR LUNA.
[2020-06-15] MEDS: ZOLPIDEM TARTRATE 10 MG TABLET PO PRN (19:51)
[2020-06-15 20:00] VITALS: BP 118/92
[2020-06-16] MEDS: MORPHINE SULFATE INJ 2 MG/ML DISP.SYRIN IV PRN ×5 (00:14→20:27)
--- NOTE | 2020-06-16 01:15 | NUR ---
MS-1/MONTRELL PT SCREAMING IN PAIN. DEMANDING THAT I TAKE OUT NOLVIA SINCLAIR. RADHA SINCLAIR DC'D. PT STATES RELIEF FROM PAIN NOW. WILL CONTINUE TO MONITOR.
[2020-06-16] MEDS: HYDROCODONE/APAP 5/325MG TABLET PO PRN ×3 (03:47→16:04)
--- NOTE | 2020-06-16 05:31 | NUR ---
MS-1/FBI PROFILER PT REFUSING TO HAVE HER LINENS CHANGED EVEN THOUGH SHE IS WET. SAYS SHE WOULD RATHER BE WET THAN BE IN PAIN. ALL PRN PAIN MEDICATION ADMINISTERED ORDERED.
[2020-06-16 08:00] VITALS: BP 136/57
[2020-06-16 16:00] VITALS: BP 134/69
--- NOTE | 2020-06-16 20:00 | NUR ---
RN NOTE RECEIVED PT IN BED, A/A/O X3, PT IS ON RA SATING 99%, HAS UNLABORED BREATHING, SAFETY MEASURES IN PLACE.
[2020-06-17] MEDS: MORPHINE SULFATE INJ 2 MG/ML DISP.SYRIN IV PRN ×2 (02:15→06:14)
[2020-06-17] MEDS: Potassium Chloride 20 MEQ in IV D5/0.45 NACL 1,000 ML IV PRN (03:06)
[2020-06-17 04:00] VITALS: BP 117/73
--- NOTE | 2020-06-17 07:23 | NUR ---
RN NOTE REPORT GIVEN TO ONCOMING SHIFT FOR LUNA.
--- NOTE | 2020-06-17 07:35 | NUR ---
RECEIVED PATIENT IN BED. NO ACUTE DISTRESS NOTED. PATIENT ALERT & ORIENTED X4. PATIENT ON ROOM AIR, SATURATING WELL. PATIENT RFA INTACT, PATENT. PATIENT SAFETY MEASURES MAINTAINED. CALL LIGHT WITHIN REACH. WILL CONTINUE TO MONITOR.
[2020-06-17 08:00] VITALS: BP 134/74
--- NOTE | 2020-06-17 09:14 | NUR ---
WOUND CARE CONSULT:PT AMBULATORY AND CONTINENT. DRY SCABS NOTED TO FEET, NO DRAINAGE, ERYTHEMA OR TENDERNESS, PRESENT ON ADMISSION. WILL SEE PRN.
--- NOTE | 2020-06-17 10:24 | NUR ---
PATIENT DISCHARGE ORDER FOR PLACEMENT IN SNF. WHEN INFORMING THEPATIENT, THE PATIENT REFUSED AND REPORTED SHE WANTED TO GO BACK TO [facility]. I INFORMED THE PATIENT THAT THAT CAN BE ARRANGED, WILL GET THE PAPERWORK AND INFORM THE PROPER STAFF, BUT PATIENT REFUSED TO WAIT. PATIENT REMOVED IV HERSELF AND PROCEEDED TO WALK OUT OF THE HOSPITAL. UNABLE TO CONVINCE PATIENT TO WAIT AND GO THROUGH THE PAPERWORK, SO I REMOVED HER ID BAND. PATIENT WENT AMA
--- NOTE | 2020-06-17 15:23 | NUR ---
Diesel Engine Pipe Fitter: director of casework services consult requested for homelessness. SW was unable to meet with the patient as patient left AMA. No further SS interventions needed at this time.
== END 2020-06-17 11:44 | disposition left against medical advice (07) | DRG 561 ==
LOC: ER 15:15 → MEDSG1 17:20
PROVIDERS: ADMIT Internal Medicine; ATTEND Internal Medicine
PROC: 0SW9XJZ Revision of Synthetic Substitute in Right Hip Joint, External Approach (ICD-10-PCS; principal; 2020-06-15)
DX: T84.020A Dislocation of internal right hip prosthesis, initial encounter (principal); Y79.2 Prosthetic and other implants, materials and accessory orthopedic devices associated with adverse incidents; G40.909 Epilepsy, unspecified, not intractable, without status epilepticus; I10 Essential (primary) hypertension; M19.90 Unspecified osteoarthritis, unspecified site; Z59.0 Homelessness; Y92.003 Bedroom of unspecified non-institutional (private) residence as the place of occurrence of the external cause; Z20.822 Contact with and (suspected) exposure to COVID-19; Z96.653 Presence of artificial knee joint, bilateral; Z96.643 Presence of artificial hip joint, bilateral; Z91.81 History of falling; F17.200 Nicotine dependence, unspecified, uncomplicated; G89.29 Other chronic pain; F10.10 Alcohol abuse, uncomplicated; Y90.9 Presence of alcohol in blood, level not specified; F25.9 Schizoaffective disorder, unspecified; R53.1 Weakness; R27.8 Other lack of coordination; F32.9 Major depressive disorder, single episode, unspecified; F41.9 Anxiety disorder, unspecified; I08.3 Combined rheumatic disorders of mitral, aortic and tricuspid valves; M51.36 Other intervertebral disc degeneration, lumbar region
CPT/HCPCS: 36415; 71045-TC; 72170-TC; 73501; 73502; 80048-TC; 80053-TC; 80061-TC; 83735-TC; 84100-TC; 84484-TC; 85025-TC; 85730-TC; 87081-TC; 93307-TC; 97110-TC; 97112-TC; 97116-TC; 97530-TC; G0378; G0500; J1170; J2250; J2270; J2370; J2405; J2704; J3010; J3480; J3490; J7030; J7050; U0003